=== PATIENT | female | born 1980 | race Caucasian/White ===

== ENCOUNTER 2023-01-09 08:38 | Emergency (ER) | payer OTHER, SELFPAY ==
[2023-01-09 08:42] VITALS: BP 98/69; PULSE 54; RESP 19; TEMP 36.6; O2SAT 98; BMI 51.2
--- NOTE | 2023-01-09 08:59 | ED.FEMALEGU ---
HPI - Female Genitourinary General Chief complaint: Urogenital-Female Stated complaint: UTI Time Seen by Provider: 01/09/23 08:51 Source: patient Mode of arrival: ambulatory Limitations: no limitations History of Present Illness HPI Narrative: 42 yo female with history of recurring UTIs (last was a months ago) who presents to the ER for a week and a half of bladder pressure, urgency, frequency, foul-smelling urine and left sided flank pain. She reports the left-sided flank pain is a dull ache, comes and goes. She states she has ongoing bladder pressure which is common UTI symptom for her. She denies any dysuria. She denies any hematuria. She states she has not had any abdominal pain, nausea, vomiting, diarrhea. She is not sexually active. She denies any vaginal discharge. MD elicited complaint: UTI Pertinent past history: recurrent UTIs Onset (ago): week(s) (1.5) Location of symptoms: suprapubic, urethra and flank (left) Severity: moderate Female Urogenital Radiation: Non-Radiating Severity scale (1-10): 5 Quality of pain: dull and aching Consistency: intermittent Vaginal discharge: none Vaginal bleeding: none Urinary symptoms: Urgency, Frequency and Foul Smelling Urine Exacerbating factors: none Relieving factors: none Associated symptoms: back pain Treatment prior to arrival: none Sexual activity: No Patient : No Related Data Previous Rx's Medication Instructions Recorded cefuroxime axetil 250 mg tablet 250 mg PO BID 7 days #14 tabs 01/09/23 Allergies Allergy/AdvReac Type Severity Reaction Status Date / Time erythromycin base AdvReac Stomach Verified 01/09/23 08:41 Upset Review of Systems Review of Systems: Yes all other systems are reviewed and are negative [facility] Social History Social History Alcohol intake: never Smoked in Last 30 Days: Yes Advance Directives: No Advance Directives Information Provided: Yes Physical Exam Vital Signs: Vital Signs: Last Vital Signs Temp 98 F 01/09/23 08:42 Pulse 54 01/09/23 08:42 Resp 19 01/09/23 08:42 BP 98/69 01/09/23 08:42 Pulse Ox 98 01/09/23 08:42 BMI result Body Mass Index 51.2 Appearance: Alert. Oriented X3. No acute distress. Head: normocephalic, atraumatic. Eyes: Pupils equal, round and reactive to light. ENT: Pharynx normal. No tonsillar swelling or exudate. Neck: Normal inspection. Neck supple. CVS: Normal heart rate and rhythm. Pulses normal. Respiratory: No respiratory distress. Breath sounds normal. Abdomen: Obese, soft and nontender. +BS x4. No CVA tenderness. Skin: Skin warm and dry. Normal skin color. Normal skin turgor. No rashes. Extremities: No lower extremity edema. No joint swelling. Neuro/psych: Oriented X 3. Grossly normal, nonfocal CN II-XII intact. Normal speech and cognition. Medical Decision Making Medical Decision Making [facility] Narrative: 42-year-old female presents to the ER for evaluation of urinary tract infection symptoms for the last week and half. She also reports low back pain and left flank pain. She denies hematuria, fever, chills, nausea, vomiting, abdominal pain. She has no CVA tenderness on examination. She is hemodynamically stable and afebrile on arrival to the ER. Her urinalysis is positive for infection, negative for . Doubt acute pyelonephritis. Will treat with Ceftin for 1 week. Stable for discharge home. Return precautions discussed. Differential Diagnosis Differential Diagnoses: The differential diagnosis associated with the presentation includes Acute lower UTI, pyelonephritis, kidney stone, Lab Data [facility] Lab Attestation statement: I reviewed the patient's lab results. Labs: Lab Results 01/09/23 Range/Units 08:57 Urine Color Yellow Urine Appearance Cloudy Urine pH 5.5 (5.0-9.0) Ur Specific [place] 1.010 (1.005-1.025) Urine Protein Negative (Neg-Trace) mg/dL Urine Glucose (UA) Negative (Negative) mg/dL Urine Ketones Negative (Negative) mg/dL Urine Blood Negative (Negative) Urine Nitrite Negative (Negative) Ur Leukocyte Esterase Large (3+) H (Negative) Urine RBC 0-2 (0-2) /HPF Urine WBC >50 H (0-5) /HPF Ur Squamous Epith Cells 11-20 (0-2) /HPF Urine Bacteria 3+ (None Seen) Hyaline Casts 0-2 (0-2) /LPF Prescription Management I considered prescription management with: Antibiotic Critical Care Time Critical Care Time Critical Care Time: No Discharge Plan Discharge Clinical Impression: Urinary tract infection Patient Disposition: Home, Self-Care Instructions: Urinary Tract Infection in Women (DC) Additional Instructions: Take the prescribed antibiotic as directed. Complete the entire course and do not miss any doses. Drink plenty of water, stay hydrated. Follow-up with your doctor. Prescriptions: New cefuroxime axetil 250 mg tablet 250 mg PO BID 7 Days Qty: 14 0RF
[2023-01-09 09:11] LABS: Appearance Urine Cloudy; Color Urine Yellow; Glucose Urine UA Negative (Negative); Leukocyte Esterase Urine Large (3+) (Negative); Nitrite Urine Negative (Negative); PH 5.5 (5.0-9.0); UMIC TRIGGER UACC YES; Urine Blood Negative (Negative); Urine Ketones Negative (Negative); Urine Protein Negative (Neg-Trace)
[2023-01-09 09:16] LABS: Bacteria Urine 3+ (None Seen); Hyaline Casts Urine 0-2 /LPF (0-2); RBC Urine 0-2 /HPF (0-2); UACC Culture Trigger YES; WBC Urine >50 /HPF (0-5)
[2023-01-09 09:24] LABS: UPreg QC Valid YES; Urine Pregnancy NEGATIVE (NEGATIVE)
[2023-01-09] MEDS: Phenazopyridine HCL 100 MG TABLET PO (09:37)
== END 2023-01-09 09:44 | disposition home or self-care (01) ==
PROVIDERS: Physician Assistant; Emergency Provider Emergency Medicine Emergency Medical Services
DX: N39.0 Urinary tract infection, site not specified (principal)
CPT/HCPCS: 81001; 81025; 87086; 99283; 99284

== ENCOUNTER 2023-01-31 16:04 | Emergency (ER) | payer OTHER, SELFPAY ==
--- NOTE | ~2023-01-31 | CT_ITS ---
EXAMINATION: CT ABDOMEN AND PELVIS WITHOUT CONTRAST CLINICAL INFORMATION: Left flank pain. COMPARISON: None available. TECHNIQUE: Multidetector volumetric imaging was performed from the superior aspect of the liver through the pubic symphysis. Sagittal and coronal reformatted images were obtained on the technologist's workstation. This CT examination was performed using dose optimization techniques as appropriate, variously including the following: *Automated exposure control *Adjustment of mA and/or kV according to patient size (this includes techniques or standardized protocols for targeted exams where dose is matched to indication/reason for exam; i.e. extremities or head) *Use of iterative reconstruction technique DLP: 1214 mGy-cm FINDINGS: The lack of intravenous contrast limits evaluation of the solid visceral organs including the liver, spleen, pancreas, and kidneys. LUNG BASES: The visualized lung bases are unremarkable. LIVER, GALLBLADDER, AND BILIARY TREE: The liver is normal in size, shape, and attenuation. No focal hepatic lesion or biliary ductal dilatation is present. Cholecystectomy. PANCREAS: Limited noncontrast examination. No peripancreatic fat stranding or free fluid. SPLEEN: Unremarkable. ADRENAL GLANDS: Unremarkable. KIDNEYS AND URETERS: Limited noncontrast examination. No hydronephrosis or nephrolithiasis. No perinephric fat stranding. BLADDER: Unremarkable. GASTROINTESTINAL TRACT: Stomach and small bowel are nondilated. Normal appendix. No pericolonic inflammatory changes. No evidence of bowel obstruction. ABDOMINAL WALL: Mild diffuse anasarca. LYMPH NODES: No lymphadenopathy. VASCULAR: Limited noncontrast examination. Abdominal aorta is normal in caliber. PELVIC VISCERA: IUD centered in the endometrial cavity. There is a 3.5 cm simple cyst in the right ovary, almost certainly benign and for which no imaging follow-up is recommended. OSSEOUS STRUCTURES: No acute or aggressive appearing osseous abnormalities. CT/CT abdomen pelvis wo IV con IMPRESSION: No evidence of hydronephrosis or nephrolithiasis. No acute abnormalities to explain the patient's symptoms.
--- NOTE | 2023-01-31 16:10 | ED.ABDPAIN ---
HPI - Abdominal Pain General Chief Complaint: Urogenital-Female Stated Complaint: ? kidney infection Time Seen by Provider: 01/31/23 17:05 Source: patient Mode of arrival: ambulatory History of Present Illness HPI narrative: 42-year-old female who presents with left flank discomfort that started yesterday associated nausea but no vomiting, fever or chills and also reports urinary symptoms. She states that she was recently treated for UTI and has a history of renal colic. Related Data Previous Rx's Medication Instructions Recorded cefuroxime axetil 250 mg tablet 250 mg PO BID 7 days #14 tabs 01/09/23 nitrofurantoin 100 mg PO Q12H 5 days #10 caps 01/31/23 monohydrate/macrocrystals 100 mg capsule (Macrobid) Allergies Allergy/AdvReac Type Severity Reaction Status Date / Time erythromycin base AdvReac Stomach Verified 01/09/23 08:41 Upset Review of Systems Review of Systems Pertinent positives and negatives as stated in HPI PMFSH Past Medical History Source: nursing notes reviewed Social History Social History Alcohol intake: former Smoked in Last 30 Days: Yes Use of substances other than those prescribed or required for medical reasons: No Advance Directives: No Advance Directives Information Provided: No Patient : No Physical Exam ED Vital Signs: Vital Signs - 24 hr 01/31/23 16:11 01/31/23 18:04 01/31/23 19:24 Temperature 98.6 F 97.9 F Pulse Rate 65 61 61 Respiratory Rate 18 18 18 Blood Pressure 108/85 123/58 L 126/54 L Pulse Oximetry 97 96 99 Oxygen Delivery Method Room Air Room Air Room Air BMI result Body Mass Index 52.1 VITAL SIGNS: Reviewed. GENERAL: Elevated BMI, Well developed, well nourished, in no acute distress. HEAD: Normocephalic/atraumatic EYES: PERRLA, EOMI EARS: Ext canals without abnormality NOSE: Nares patent bilateral OROPHARYNX: no oral lesions noted, posterior pharynx clear NECK: Supple, no adenopathy LUNGS: Normal breath sounds. No adventitious sounds or accessory muscle use. SpO2<96> CARDIOVASCULAR: Regular rate and rhythm without noted murmurs ABDOMEN: Soft, non-tender, non-distended with bowel sounds. MUSCULOSKELETAL: No tenderness, deformities, or effusions noted on gross inspection. EXTREMITIES: No cyanosis, clubbing or edema. SKIN: Inspection of the skin reveals no rashes NEUROLOGIC: Alert and oriented x 4. Strength and sensation to light touch were grossly intact x 4. Course Course Course Narrative: This is a rapid medical exam. Deferred additional HPi, ROS, PE to primary provider. 42yo female w/ history of GERD, RA, DDD, OUD on suboxone (plans on switching to suboclade), frequent utis here with left sided back pain with radiation to left lower abdomen, bladder pressure, subjective fever, urinary frequency x 1 week. Will check labs, UA VSS Medical Decision Making Medical Decision Making [facility] Narrative: 42-year-old female with history and clinical presentation concerning for possible renal colic or pyelonephritis, urine sample is challenging to assess given patient is currently on menstrual cycle. Will be given combination analgesics and proceed with CT scan. I reviewed all investigations my interpretation is patient has UTI, received initial antibiotics here in the emergency room and then discharged home in stable condition. Differential Diagnosis Please see the discussion above. Lab Data Please see the discussion above 01/31/23 16:30 01/31/23 16:30 Labs: Lab Results 01/31/23 01/31/23 01/31/23 Range/Units 16:30 16:30 16:35 WBC 7.2 (4.8-10.8) X10*3/uL RBC 4.12 L (4.20-5.50) X10*6/uL Hgb 12.4 (12.0-16.0) g/dl Hct 37.5 (37.0-47.0) % MCV 91.0 (80.0-98.0) fL MCH 30.1 (27.0-33.0) pg MCHC 33.1 (31.0-35.0) g/dl RDW 12.8 (11.0-16.0) % Plt Count 236 (160-400) X10*3/uL MPV 10.7 (9.4-12.3) fL Immature Gran % (Auto) 0.3 (0.0-0.4) % Neut % (Auto) 42.5 L (45-73) % Lymph % (Auto) 41.4 H (20-40) % Johnson % (Auto) 10.4 (2-11) % Eos % (Auto) 4.7 H (0-4) % Baso % (Auto) 0.7 (0-2) % Lymph # (Auto) 3.0 (1.2-4.9) X10*3/uL Johnson # (Auto) 0.8 (0.1-1.2) X10*3/uL Eos # (Auto) 0.3 (0.0-0.4) X10*3/uL Baso # (Auto) 0.1 (0.0-0.2) X10*3/uL Abs Immat Gran (auto) 0.02 (0.00-0.03) X10*3/uL Absolute Neuts (auto) 3.1 (2.0-8.3) x10*3/uL Absolute Nucleated RBC 0.000 (0.0-0.012) X10*3/uL Nucleated RBC % (auto) 0.0 (0.0-0.2) /100WBC Sodium 139 (135-145) mmol/L Potassium 4.1 (3.3-5.1) mmol/L Chloride 105 (96-108) mmol/L Carbon Dioxide 26 (22-29) mmol/L Anion Gap 12 (12-20) BUN 20 H (9-16) mg/dL Creatinine 0.94 (0.5-1.4) mg/dL Estim Creat Clear Calc 102.7 Estimated GFR > 60 Random Glucose 100 (60-115) mg/dL Calcium 9.1 (8.4-10.2) mg/dL Total Bilirubin 0.2 (0.0-1.0) mg/dL Direct Bilirubin < 0.2 (0.0-0.5) mg/dL AST 40 H (5-31) U/L ALT 51 H (0-31) U/L Alkaline Phosphatase 76 (39-117) U/L Total Protein 6.1 L (6.5-8.0) g/dL Albumin 3.3 L (3.5-5.0) g/dL Lipase 9 (8-78) U/L Urine Color Yellow Urine Appearance Clear Urine pH 5.5 (5.0-9.0) Ur Specific [place] 1.025 (1.005-1.025) Urine Protein 30 (1+) H (Neg-Trace) mg/dL Urine Glucose (UA) Negative (Negative) mg/dL Urine Ketones Trace (Negative) mg/dL Urine Blood Large (3+) H (Negative) Urine Nitrite Negative (Negative) Ur Leukocyte Esterase Small (1+) H (Negative) Urine RBC >20 H (0-2) /HPF Urine WBC 6-10 H (0-5) /HPF Ur Squamous Epith Cells 6-10 (0-2) /HPF Urine Bacteria 1+ (None Seen) Hyaline Casts 0-2 (0-2) /LPF Urine Test (NEGATIVE) 01/31/23 Range/Units 16:35 WBC (4.8-10.8) X10*3/uL RBC (4.20-5.50) X10*6/uL Hgb (12.0-16.0) g/dl Hct (37.0-47.0) % MCV (80.0-98.0) fL MCH (27.0-33.0) pg MCHC (31.0-35.0) g/dl RDW (11.0-16.0) % Plt Count (160-400) X10*3/uL MPV (9.4-12.3) fL Immature Gran % (Auto) (0.0-0.4) % Neut % (Auto) (45-73) % Lymph % (Auto) (20-40) % Johnson % (Auto) (2-11) % Eos % (Auto) (0-4) % Baso % (Auto) (0-2) % Lymph # (Auto) (1.2-4.9) X10*3/uL Johnson # (Auto) (0.1-1.2) X10*3/uL Eos # (Auto) (0.0-0.4) X10*3/uL Baso # (Auto) (0.0-0.2) X10*3/uL Abs Immat Gran (auto) (0.00-0.03) X10*3/uL Absolute Neuts (auto) (2.0-8.3) x10*3/uL Absolute Nucleated RBC (0.0-0.012) X10*3/uL Nucleated RBC % (auto) (0.0-0.2) /100WBC Sodium (135-145) mmol/L Potassium (3.3-5.1) mmol/L Chloride (96-108) mmol/L Carbon Dioxide (22-29) mmol/L Anion Gap (12-20) BUN (9-16) mg/dL Creatinine (0.5-1.4) mg/dL Estim Creat Clear Calc Estimated GFR Random Glucose (60-115) mg/dL Calcium (8.4-10.2) mg/dL Total Bilirubin (0.0-1.0) mg/dL Direct Bilirubin (0.0-0.5) mg/dL AST (5-31) U/L ALT (0-31) U/L Alkaline Phosphatase (39-117) U/L Total Protein (6.5-8.0) g/dL Albumin (3.5-5.0) g/dL Lipase (8-78) U/L Urine Color Urine Appearance Urine pH (5.0-9.0) Ur Specific [place] (1.005-1.025) Urine Protein (Neg-Trace) mg/dL Urine Glucose (UA) (Negative) mg/dL Urine Ketones (Negative) mg/dL Urine Blood (Negative) Urine Nitrite (Negative) Ur Leukocyte Esterase (Negative) Urine RBC (0-2) /HPF Urine WBC (0-5) /HPF Ur Squamous Epith Cells (0-2) /HPF Urine Bacteria (None Seen) Hyaline Casts (0-2) /LPF Urine Test NEGATIVE (NEGATIVE) Radiology Impression Radiologist Impression: My interpretation is in agreement with radiology's impression. Medications Administered Discontinued Medications Generic Name Dose Route Start Last Admin Trade Name Freq PRN Reason Stop Dose Admin Acetaminophen 975 mg 01/31/23 18:01 01/31/23 18:20 Acetaminophen 325 Mg Tablet PO 01/31/23 18:02 975 mg ONCE ONE Administration Ibuprofen 400 mg 01/31/23 18:01 01/31/23 18:20 Ibuprofen 400 Mg Tablet PO 01/31/23 18:02 400 mg ONCE ONE Administration Nitrofurantoin Macrocrystals 100 mg 01/31/23 20:07 01/31/23 20:25 Nitrofurantoin Monohyd/M-Cryst 100 Mg Capsule PO 01/31/23 20:08 100 mg ONCE ONE Administration Discharge Plan Discharge Clinical Impression: Urinary tract infection Patient Disposition: Home, Self-Care Instructions: Urinary Tract Infection in Women (DC) Additional Instructions: Complete the entire course of antibiotics as ordered. Prescriptions: New nitrofurantoin monohyd/m-cryst [Macrobid] 100 mg capsule 100 mg PO Q12H 5 Days Qty: 10 0RF Rx Instructions: must administer with a meal/food No Action cefuroxime axetil 250 mg tablet 250 mg PO BID 7 Days Qty: 14 0RF
[2023-01-31 16:11] VITALS: BP 108/85; PULSE 65; RESP 18; TEMP 37; O2SAT 97; BMI 52.1
[2023-01-31 16:35] LABS: MANUAL DIFF FLAG NO
[2023-01-31 16:38] LABS: Basophils Absolute Auto 0.1 X10*3/uL (0.0-0.2); Basophils Percent Auto 0.7 % (0-2); Eosinophils Absolute Auto 0.3 X10*3/uL (0.0-0.4); Eosinophils Percent Auto 4.7 % (0-4); Hematocrit 37.5 % (37.0-47.0); Hemoglobin 12.4 g/dl (12.0-16.0); Imm Gran Abs Auto 0.02 X10*3/uL (0.00-0.03); Imm Gran Pct Auto 0.3 % (0.0-0.4); Lymphocytes Percent Auto 41.4 % (20-40); Mean Corpuscular HGB Conc 33.1 g/dl (31.0-35.0); Mean Corpuscular Hemoglobin 30.1 pg (27.0-33.0); Mean Platelet Volume 10.7 fL (9.4-12.3); Monocytes Absolute Auto 0.8 X10*3/uL (0.1-1.2); Monocytes Percent Auto 10.4 % (2-11); Neutrophils Absolute Auto 3.1 x10*3/uL (2.0-8.3); Neutrophils Percent Auto 42.5 % (45-73); Platelet Count 236 X10*3/uL (160-400); Red Blood Count 4.12 X10*6/uL (4.20-5.50); Red Cell Distribution Width 12.8 % (11.0-16.0); White Blood Count 7.2 X10*3/uL (4.8-10.8)
[2023-01-31 16:44] LABS: UPreg QC Valid YES; Urine Pregnancy NEGATIVE (NEGATIVE)
[2023-01-31 16:47] LABS: Appearance Urine Clear; Glucose Urine UA Negative (Negative); Leukocyte Esterase Urine Small (1+) (Negative); Nitrite Urine Negative (Negative); PH 5.5 (5.0-9.0); Specific Gravity - Urine 1.025 (1.005-1.025); UMIC TRIGGER UACC YES; Urine Blood Large (3+) (Negative); Urine Ketones Trace mg/dL (Negative); Urine Protein 30 (1+) mg/dL (Neg-Trace)
[2023-01-31 16:48] LABS: Bacteria Urine 1+ (None Seen); Color Urine Yellow; Hyaline Casts Urine 0-2 /LPF (0-2); RBC Urine >20 /HPF (0-2); UACC Culture Trigger YES
[2023-01-31 16:53] LABS: Alanine Aminotransferase 51 U/L (0-31); Albumin Level 3.3 g/dL (3.5-5.0); Alkaline Phosphatase 76 U/L (39-117); Anion Gap 12 (12-20); Aspartate Amino Transferase 40 U/L (5-31); Bilirubin Direct < 0.2 mg/dL (0.0-0.5); Bilirubin Total 0.2 mg/dL (0.0-1.0); Blood Urea Nitrogen 20 mg/dL (9-16); Calcium 9.1 mg/dL (8.4-10.2); Carbon Dioxide 26 mmol/L (22-29); Chloride 105 mmol/L (96-108); Creatinine Clr Calc Pharmacy 102.7; Estimated Glomerular Filt Rate > 60; Glucose Random 100 mg/dL (60-115); Lipase 9 U/L (8-78); Potassium 4.1 mmol/L (3.3-5.1); Sodium 139 mmol/L (135-145); Total Protein 6.1 g/dL (6.5-8.0)
[2023-01-31 18:04] VITALS: BP 123/58; PULSE 61; RESP 18; O2SAT 96
[2023-01-31] MEDS: Ibuprofen 400 MG TABLET PO (18:20)
[2023-01-31] MEDS: Acetaminophen 325 MG TABLET 975 MG PO (18:20)
[2023-01-31 19:24] VITALS: BP 126/54; PULSE 61; RESP 18; TEMP 36.6; O2SAT 99
[2023-01-31] MEDS: Nitrofurantoin Monohyd/M-Cryst 100 MG CAPSULE PO (20:25)
== END 2023-01-31 20:39 | disposition home or self-care (01) ==
PROVIDERS: Nurse Practitioner Family; Emergency Provider Student in an Organized Health Care Education/Training Program
DX: N39.0 Urinary tract infection, site not specified (principal); R10.32 Left lower quadrant pain; Z79.899 Other long term (current) drug therapy
CPT/HCPCS: 36415; 74176; 80048; 80076; 81001; 81025; 83690; 85025; 87086; 99284

== ENCOUNTER 2024-06-16 15:13 | Emergency (ER) | payer OTHER, SELFPAY ==
--- NOTE | 2024-06-16 15:19 | ED_ITS ---
HPI - Skin/Abscess/Foreign Bdy General Chief complaint: Wound/Laceration Stated complaint: Abscess R armpit Time Seen by Provider: 06/16/24 17:30 Source: patient Mode of arrival: ambulatory Limitations: no limitations History of Present Illness ED Provider: Edison Vaca HPI narrative: 44-year-old female with histories of abscesses in the past presents to ED for right axilla abscess for 1 week that is tender and painful on palpation. Patient has had similar abscess in left axilla and gluteus silvia area. Patient has never follow-up with surgery to find now she was prone to having abscesses. Patient denies any fever, chest pain, shortness of breath. Patient denies any recent trauma. Related Data Previous Rx's ?Medication ?Instructions ?Recorded cefuroxime axetil 250 mg tablet 250 mg PO BID 7 days #14 tabs 01/09/23 nitrofurantoin 100 mg PO Q12H 5 days #10 caps 01/31/23 monohydrate/macrocrystals 100 mg capsule (Macrobid) cephalexin 500 mg capsule 500 mg PO QID 7 days #28 caps 06/16/24 doxycycline hyclate 100 mg tablet 100 mg PO BID 7 days #14 tabs 06/16/24 naproxen 500 mg tablet 500 mg PO BID PRN pain 7 days #14 06/16/24 tabs Allergies Allergy/AdvReac Type Severity Reaction Status Date / Time amoxapine Allergy Unknown Verified 06/16/24 15:23 carbamazepine [From Tegretol] Allergy Unknown Verified 06/16/24 15:23 tizanidine Allergy Unknown Verified 06/16/24 15:23 erythromycin base AdvReac Stomach Verified 01/09/23 08:41 Upset Review of Systems 2 Review of Systems: Yes all other systems are reviewed and are negative [facility] Social History Social History Alcohol intake: former Advance Directives: No Advance Directives Information Provided: No Do you have a plan to hurt others: No Plan Physical Exam 2 Vital Signs: Vital Signs: Last Vital Signs Temp 98.3 F 06/16/24 18:33 Pulse 88 06/16/24 18:33 Resp 19 06/16/24 18:33 BP 138/87 06/16/24 18:33 Pulse Ox 100 06/16/24 18:33 O2 Del Method Room Air 06/16/24 18:33 BMI result Body Mass Index 59.3 Const: General: cooperative, healthy appearing and comfortable O rientation/consciousness: patient oriented x3 HEENT: Head: Yes normal to inspection, Yes No palpable skull fracture present, Yes normocephalic and Yes atraumatic Eyes: General: appearance normal, both eyes and all related structures Neck: Neck: Yes normal visual inspection, Yes full ROM, Yes no lymphadenopathy, Yes no meningeal signs, Yes trachea midline, Yes supple, No anterior neck swelling and No tender Chest: Chest palpation & inspection: normal inspection of the chest and normal palpation of entire chest wall Chest/axillae images: 1. Positive for erythema and tenderness on palpation. On palpation hard nonfluctuant mass. Negative for crepitus, ecchymosis, deformity. Resp: Effort & Inspection: normal respiratory effort and able to speak in complete sentences Auscultation: clear to auscultation bilaterally Cardio: Jugular venous distension: no JVD Heart sounds: S1 normal heart sound present and S2 normal heart sound present GI: Inspection: Yes normal to inspection Palpation (GI): Soft to palpation, not firm, nontender, no guarding and not rigid : General: No CVA tenderness Back/Spine/Pelvis: Back: No CVA tenderness and No back tenderness Skin: Other: Right axilla abscess/hidradenitis suppurativa. Neuro: General: patient oriented x3, gait normal, tone normal, moves all extremities, Normal light touch and pain sensation, no meningeal signs, no focal motor deficits, CN's II-XI intact bilaterally and normal sensation to monofilament Extrem: General: Yes normal to inspection, Yes full ROM and Yes capillary refill normal Psych: Appearance: grossly normal, well kempt and not disheveled Course Course Course Narrative: This is a Rapid Medical Exam performed in triage by Tata Sargent PA-C. Full HPI, ROS and PE to be performed by primary ED provider. 44 yo F presenting to the ED c/o three abscess to R axilla x1 week w/subjective fevers. denies drainage. has been using warm compresses w/o relief. PE: 3 abscesses noted to right axilla. One with central fluctuance. Surrounding erythema. Two others indurated Plan: PO Abx & I&D to abscess Medical Decision Making Medical Decision Making [facility] Narrative: 44 yold female presents to the ED for right axilla redness/mass. Bedside ultrasound placed in area shows more cobble stone changes indicating cellulitis. There is or area of small collection, but it is not large black color on the ultrasound monitor to indicate abscesses that is soft and ready for incision & drainage. Patient informed presently no indication for incision or drainage. Area is not fluctuant. Ultrasound does not show collection ready to be drained and it is small. Shows more skin cobblestone cellulitic changes. Patient is educated on warm compression on area 4 times a day. Patient explained worrisome signs informed to return to the ED immediately. Not suspecting osteomyelitis, necrotizing fasciitis, compartment syndrome, DVT, lymphoma, or arterial occlusion. Differential Diagnosis Differential Diagnoses: The differential diagnosis associated with the presentation includes (Abscess, hidradenitis,) Admission/Observation Consideration of admission/observation: Escalation of care including admission/observation considered Independent Historian Clinical information obtained from an independent historian. History obtained from or confirmed by: Other (Patient) External Record Review External record reviewed: Other (prior visits) Prescription Management I considered prescription management with: Antibiotic Discharge Plan Discharge Clinical Impression: Abscess, Hidradenitis suppurativa of right axilla Patient Disposition: Home, Self-Care Instructions: Abscess (ED), Hidradenitis Suppurativa (ED) Additional Instructions: Presently no indication for incision and drainage. Recommend warm compress on area 4 times a day for 15 minutes. You will be discharged antibiotics. Return to the ED immediately for increased swelling, pus discharge, foul odor, severe pain, fever, chills, any other concerning symptoms. Prescriptions: New cephalexin 500 mg capsule 500 mg PO QID 7 Days Qty: 28 0RF doxycycline hyclate 100 mg tablet 100 mg PO BID 7 Days Qty: 14 0RF naproxen 500 mg tablet 500 mg PO BID PRN (Reason: pain) 7 Days Qty: 14 0RF No Action cefuroxime axetil 250 mg tablet 250 mg PO BID 7 Days Qty: 14 0RF nitrofurantoin monohyd/m-cryst [Macrobid] 100 mg capsule 100 mg PO Q12H 5 Days Qty: 10 0RF Rx Instructions: must administer with a meal/food Referrals: [facility] [place] General Surgeons [Provider Group] (Hidradenitis suppurative) Stand Alone Forms: Work/School Release Interventions: ED Discharge Assessment Last Done: 06/16/24 18:33 Discharge Date/Time: 06/16/24 18:34 Print Language: Danish
[2024-06-16 15:20] VITALS: PULSE 88; RESP 19; TEMP 36.8; O2SAT 100; BMI 59.3
[2024-06-16 18:33] VITALS: BP 138/87; PULSE 88; RESP 19; TEMP 36.8; O2SAT 100
== END 2024-06-16 18:34 | disposition home or self-care (01) ==
PROVIDERS: Emergency Provider Emergency Medicine Emergency Medical Services
DX: L02.411 Cutaneous abscess of right axilla (principal); L73.2 Hidradenitis suppurativa; R50.9 Fever, unspecified; M79.621 Pain in right upper arm
CPT/HCPCS: 99282; 99283

== ENCOUNTER 2024-07-16 00:33 | Inpatient (IN) | payer OTHER, SELFPAY ==
--- NOTE | ~2024-07-16 | XR_ITS ---
EXAMINATION: XR CHEST CLINICAL INFORMATION: sob/cough COMPARISON: None available. TECHNIQUE: 2 views of the chest were obtained. FINDINGS: No significant abnormality is noted involving the heart, lungs, mediastinum, bony thorax or soft tissues. XR/XR chest 2V IMPRESSION: Unremarkable examination. Electronically signed by: Gus Connelly MD 07/16/2024 01:46 AM [facility]
[2024-07-16 00:38] VITALS: BP 121/73; BP 142/70; PULSE 83; PULSE 88; RESP 18; TEMP 36.7; O2SAT 95; O2SAT 97; BMI 58.8
[2024-07-16 01:45] LABS: Hematocrit 40.6 % (37.0-47.0); Hemoglobin 13.8 g/dl (12.0-16.0); Mean Corpuscular Hemoglobin 28.5 pg (27.0-33.0); Mean Corpuscular Volume 83.7 fL (80.0-98.0); Mean Platelet Volume 10.4 fL (9.4-12.3); Platelet Count 308 X10*3/uL (160-400); Red Blood Count 4.85 X10*6/uL (4.20-5.50); White Blood Count 14.2 X10*3/uL (4.8-10.8)
[2024-07-16 01:47] LABS: Anion Gap 17 (12-20); Blood Urea Nitrogen 16 mg/dL (9-16); Calcium 9.5 mg/dL (8.4-10.2); Carbon Dioxide 25 mmol/L (22-29); Chloride 103 mmol/L (96-108); Creatinine Clr Calc Pharmacy 95.5; Estimated Glomerular Filt Rate 56; Glucose Random 105 mg/dL (60-115); Potassium 3.8 mmol/L (3.3-5.1); Sodium 141 mmol/L (135-145)
[2024-07-16 02:06] LABS: Influenza A PCR NEGATIVE (Negative); Influenza B PCR NEGATIVE (Negative); Resp Syncy Virus RNA Qual PCR NEGATIVE (Negative); SARS COV2 PCR INHOUSE NEGATIVE (Negative)
[2024-07-16 03:40] VITALS: BP 126/78; PULSE 83; RESP 18; TEMP 36.7; O2SAT 99
--- NOTE | 2024-07-16 05:13 | ED.URI ---
HPI - URI/Sore Throat General Chief Complaint: Upper Respiratory Symptoms Stated Complaint: SOB, Cough, runny nose, diarrhea x1 week A&Ox4 Time Seen by Provider: 07/16/24 04:58 Source: patient Mode of arrival: ambulatory Limitations: no limitations History of Present Illness ED Provider: aga LEGGETT Narrative: Patient's history of recurrent bronchitis with depression complaining of increased cough for last few days with off and on low-grade patient's smoker patient wants to talk to care team for med evaluation Related Data Previous Rx's ?Medication ?Instructions ?Recorded cefuroxime axetil 250 mg tablet 250 mg PO BID 7 days #14 tabs 01/09/23 nitrofurantoin 100 mg PO Q12H 5 days #10 caps 01/31/23 monohydrate/macrocrystals 100 mg capsule (Macrobid) cephalexin 500 mg capsule 500 mg PO QID 7 days #28 caps 06/16/24 doxycycline hyclate 100 mg tablet 100 mg PO BID 7 days #14 tabs 06/16/24 naproxen 500 mg tablet 500 mg PO BID PRN pain 7 days #14 06/16/24 tabs Allergies Allergy/AdvReac Type Severity Reaction Status Date / Time amoxapine Allergy Unknown Verified 07/16/24 00:43 carbamazepine [From Tegretol] Allergy Unknown Verified 07/16/24 00:43 tizanidine Allergy Unknown Verified 07/16/24 00:43 erythromycin base AdvReac Stomach Verified 07/16/24 00:43 Upset Review of Systems Review of Systems: Yes all other systems are reviewed and are negative PMFSH Social History Social History Alcohol intake: former Smoked in Last 30 Days: No Use of substances other than those prescribed or required for medical reasons: No Advance Directives: No Advance Directives Information Provided: Yes Patient : No Physical Exam Vital Signs: Vital Signs: Last Vital Signs Temp 98.0 F 07/16/24 03:40 Pulse 83 07/16/24 03:40 Resp 18 07/16/24 03:40 BP 126/78 07/16/24 03:40 Pulse Ox 99 07/16/24 03:40 O2 Del Method Room Air 07/16/24 03:40 BMI result Body Mass Index 58.8 Appearance: Alert. Oriented X3. No acute distress. ENT: Pharynx normal. Oral Mucosa moist Neck: Normal inspection. Neck supple. CVS: Normal heart rate and rhythm. Pulses normal. Respiratory: No respiratory distress. Equal air entry bilateral, prolonged expiration Skin: Skin warm and dry. Normal skin color. Normal skin turgor. Extremities: No lower extremity edema. psych : Patient is anxious feel depressed and suicidal with no plan Neuro: Oriented X 3. Medications Administered Discontinued Medications Generic Name Dose Route Start Last Admin Trade Name Freq PRN Reason Stop Dose Admin Albuterol Sulfate 2 puff 07/16/24 05:18 07/16/24 05:43 Albuterol Sulfate 90 Mcg 8 Gm Inhaler INHALE 07/16/24 05:19 2 puff ONCE ONE Administration Benzonatate 200 mg 07/16/24 05:18 07/16/24 05:43 Benzonatate 100 Mg Capsule PO 07/16/24 05:19 200 mg ONCE ONE Administration Cefuroxime Axetil 500 mg 07/16/24 05:18 07/16/24 05:43 Cefuroxime Axetil 500 Mg Tablet PO 07/16/24 05:19 500 mg ONCE ONE Administration Prednisone 40 mg 07/16/24 05:18 07/16/24 05:43 Prednisone 20 Mg Tablet PO 07/16/24 05:19 40 mg ONCE ONE Administration Medical Decision Making Lab Data [facility] Lab Attestation statement: I reviewed the patient's lab results. 07/16/24 01:17 07/16/24 01:17 Labs: Lab Results 07/16/24 07/16/24 Range/Units 01:17 06:17 WBC 14.2 H (4.8-10.8) X10*3/uL RBC 4.85 (4.20-5.50) X10*6/uL Hgb 13.8 (12.0-16.0) g/dl Hct 40.6 (37.0-47.0) % MCV 83.7 (80.0-98.0) fL MCH 28.5 (27.0-33.0) pg MCHC 34.0 (31.0-35.0) g/dl RDW 13.0 (11.0-16.0) % Plt Count 308 D (160-400) X10*3/uL MPV 10.4 (9.4-12.3) fL Absolute Nucleated RBC 0.000 (0.0-0.012) X10*3/uL Nucleated RBC % (auto) 0.0 (0.0-0.2) /100WBC Sodium 141 (135-145) mmol/L Potassium 3.8 (3.3-5.1) mmol/L Chloride 103 (96-108) mmol/L Carbon Dioxide 25 (22-29) mmol/L Anion Gap 17 (12-20) BUN 16 (9-16) mg/dL Creatinine 1.07 (0.5-1.4) mg/dL Estim Creat Clear Calc 95.5 Estimated GFR 56 Random Glucose 105 (60-115) mg/dL Calcium 9.5 (8.4-10.2) mg/dL Urine Test NEGATIVE (NEGATIVE) Urine Opiates Screen Not Detected (Not Detect) Ur Buprenorphine Scrn Positive H (Not Detect) ng/mL Ur Oxycodone Screen Not Detected (Not Detect) ng/mL Urine Methadone Screen Not Detected (Not Detect) ng/mL Urine Fentanyl Screen Not Detected (Not Detect) Ur Barbiturates Screen Not Detected (Not Detect) Ur Phencyclidine Scrn Not Detected (Not Detect) Ur Amphetamines Screen Not Detected (Not Detect) U Benzodiazepines Scrn Not Detected (Not Detect) Urine Cocaine Screen POSITIVE H (Not Detect) U Marijuana (THC) Screen POSITIVE H (Not Detect) Ethyl Alcohol < 10 mg/dL Influenza Type A (PCR) NEGATIVE (Negative) Influenza Type B (PCR) NEGATIVE (Negative) RSV RNA Qual (PCR) NEGATIVE (Negative) SARS-CoV-2 RNA (RT-PCR) NEGATIVE (Negative) Radiology Impression Discussion of test interpretation with radiology: I have reviewed the radiologist's reading. Radiologist Impression: NAD Discharge Plan Discharge Clinical Impression: Bronchitis, Depression Patient Disposition: Still a Patient Prescriptions: No Action cefuroxime axetil 250 mg tablet 250 mg PO BID 7 Days Qty: 14 0RF cephalexin 500 mg capsule 500 mg PO QID 7 Days Qty: 28 0RF doxycycline hyclate 100 mg tablet 100 mg PO BID 7 Days Qty: 14 0RF naproxen 500 mg tablet 500 mg PO BID PRN (Reason: pain) 7 Days Qty: 14 0RF nitrofurantoin monohyd/m-cryst [Macrobid] 100 mg capsule 100 mg PO Q12H 5 Days Qty: 10 0RF Rx Instructions: must administer with a meal/food Print Language: Singaporean
--- NOTE | 2024-07-16 05:18 | PC.NURSE ---
pt a&ox4, respirations even and unlabored. pt reports increased depression and anxiety at this time, she reports she states to triage i might be suicidal at this time of speaking to pt, pt states if she leaves she is going to have thoughts of suicide. pt reports she needs a medications adjustment for anxiety and depression. pt denies HI, provider and unit trust manager aware.
[2024-07-16 05:37] LABS: Ethanol < 10 mg/dL
[2024-07-16] MEDS: predniSONE 20 MG TABLET 40 MG PO ×2 (05:43→16:00)
[2024-07-16] MEDS: cefuroxime axetiL 500 MG TABLET PO ×3 (05:43→21:03)
[2024-07-16] MEDS: Albuterol Sulfate 90 MCG 8 GM INHALER 2 PUFF INHALE (05:43)
[2024-07-16] MEDS: Benzonatate 100 MG CAPSULE 200 MG PO (05:43)
--- NOTE | 2024-07-16 05:46 | PC.NURSE ---
pt medicated per mar, tolerated well with water.
--- NOTE | 2024-07-16 05:53 | PC.NURSE ---
security at bedside to change pt over, report given to POD rn
--- NOTE | 2024-07-16 05:58 | PC.NURSE ---
client transitioned over from main ed stated prior to dc that client would kill self if dc'ed also apparently is interested in med changes. asked approriately fro another blanket and ajdourned to room.
[2024-07-16 06:23] LABS: UPreg QC Valid YES; Urine Pregnancy NEGATIVE (NEGATIVE)
[2024-07-16 06:32] LABS: Amphetamine Screen Urine Not Detected (Not Detect); Barbiturates, Urine Not Detected (Not Detect); Benzodiazepines Screen Urine Not Detected (Not Detect); Buprenorphine Scr Positive (Not Detect); Cannabinoid Screen Urine POSITIVE (Not Detect); Cocaine Screen Urine POSITIVE (Not Detect); Fentanyl, urine Not Detected (Not Detect); Methadone Screen, Urine Not Detected (Not Detect); Opiate Screen Urine Not Detected (Not Detect); Oxycodone Screen Urine Not Detected (Not Detect); Phencyclidine Screen Urine Not Detected (Not Detect)
--- NOTE | 2024-07-16 07:29 | PC.NURSE ---
Assumed care of patient at 0645, patient appears to be in no apparent distress this am, sleeping, respirations even and unlabored. Continue plan of care for CARE team hilary
--- NOTE | 2024-07-16 09:50 | PHA.MEDREC ---
Pharmacy Consult ? Medication Reconciliation Pharmacy has completed the medication reconciliation. Spoke with patient in ed 4. Patient knew all medications. Patient is no longer on propranolol and only takes baclofen bid. ED provider aware med rec updated
[2024-07-16] MEDS: Ibuprofen 600 MG TABLET PO (11:45)
--- NOTE | 2024-07-16 12:50 | MHC.CARE ---
Pt has been found to meet criteria fir IPLOC. Pt had previously been a resident of [facility] in [place]. In order for Pt to return, Pt needs to contact their program on 07/19 and speak to Margo. Pt needs to step down into a [facility] bed in order to return to [facility].
--- NOTE | 2024-07-16 13:39 | PC.NURSE ---
pt ate lunch quickly then vomited on the floor. was apologetic. denies nausea after vomiting
--- NOTE | 2024-07-16 16:50 | PC.NURSE ---
Pt resting in bed, no apparent distress at this time, calm and cooperative, offering no complaints to this RN.
[2024-07-16 19:50] VITALS: PULSE 87; O2SAT 97
[2024-07-16] MEDS: QUEtiapine Fumarate 50 MG TABLET PO (20:17)
[2024-07-16] MEDS: Cariprazine HCl 3 MG CAPSULE PO (20:17)
[2024-07-16] MEDS: hydrOXYzine HCL 50 MG TABLET PO (20:17)
[2024-07-16 20:26] VITALS: BP 112/76; PULSE 68; RESP 20; TEMP 36.3; O2SAT 96
--- NOTE | 2024-07-16 21:20 | PC.NURSE ---
Pt has had uneventful day, most of which was spent sleeping or ambulating around pod, conversing with staff. Patient is calm and cooperative, took all night medications without issue. Pt is currently resting on bed in 4, aware of plan of care for inpatient bedsearch
--- NOTE | 2024-07-16 23:22 | PC.NURSE ---
Took report from off-going RN at 2300 hours. Pt is a 44 y/o female who presents for evaluation for SI without a plan and medication adjustment. History is significant for multiple attempts in the past. Pt is calm and cooperative, independent with ADLs, and denies any HI at this time. Inpatient bed search is ongoing. Will continue to monitor for any changes.
--- NOTE | 2024-07-17 | ECG_ITS ---
Test Reason : CHECK QT Blood Pressure : / mmHG Vent. Rate : 072 BPM Atrial Rate : 072 BPM P-R Int : 134 ms QRS Dur : 086 ms QT Int : 432 ms P-R-T Axes : 006 020 019 degrees QTc Int : 473 ms Normal sinus rhythm Low voltage QRS Borderline ECG No previous ECGs available Referred By: Nadira Barajas Electronically Signed By:LAYLA HENSON
--- NOTE | 2024-07-17 01:26 | PC.NURSE ---
Pt is sleeping in bed in right lateral recumbent position, appears comfortable. Easily arousable with verbal stimuli. Changes positions independently as desired. Will continue to monitor for any changes.
--- NOTE | 2024-07-17 03:07 | PC.NURSE ---
Pt is sleeping in bed in right lateral recumbent position, appears comfortable. Breathing observed, easily arousable with verbal stimuli. Changes positions independently as desired. Q15 safety checks continue. Will continue to monitor for any changes
--- NOTE | 2024-07-17 06:27 | PC.NURSE ---
Pt slept most of the night, got up once during the shift to use the bathroom. Ambulates well with a steady gait. Is calm and cooperative, appropriate with staff. Pt is easily arousable with verbal stimuli. Bed search is ongoing for inpatient level care. Will continue to monitor for any changes.
[2024-07-17 06:37] VITALS: BP 113/65; PULSE 64; RESP 16; TEMP 36.7; O2SAT 98
[2024-07-17] MEDS: cefuroxime axetiL 500 MG TABLET PO ×2 (08:39→20:30)
[2024-07-17] MEDS: predniSONE 20 MG TABLET 40 MG PO (08:39)
[2024-07-17 09:14] LABS: Appearance Urine Turbid; Color Urine Yellow; Glucose Urine UA Negative (Negative); Leukocyte Esterase Urine Negative (Negative); Nitrite Urine Negative (Negative); Specific Gravity - Urine >= 1.030 (1.005-1.025); Urine Blood Negative (Negative); Urine Ketones 15 mg/dL (Negative); Urine Protein Trace mg/dL (Neg-Trace)
--- NOTE | 2024-07-17 14:51 | PC.NURSE ---
pt was medicated for arthritis pain with Motrin 600mg po at 1440. Pharmacy aware that IP provider cancelled order while it was in process of being given to the patient
[2024-07-17 16:18] VITALS: BP 150/94; PULSE 66; RESP 16; TEMP 36.4; O2SAT 98; BMI 57.9
[2024-07-17] MEDS: Nicotine 21 MG PATCH.TD24 TRANSDERMA (16:44)
[2024-07-17] MEDS: Nicotine Polacrilex 2 MG GUM 4 MG BUCCAL ×2 (16:44→20:31)
--- NOTE | 2024-07-17 18:04 | PC.ADMIT ---
Darline was admitted to at 15:15 from the pod on a CV for suicidal thoughts. She has been residing at a [facility] at [facility] for the past 2 months. She became increasingly depressed there and after alerting staff to her suicidal thoughts and not receiving an adequate response she left [facility], used crack, and presented to the ED for difficulty breathing and coughing. She was diagnosed with bronchitis and antibiotics were started in the ED. She states that physically she is feeling better. Irma is cooperative with the admission process and her speech and eye contract are within normal limits. She appears at ease in the milieu and is spending time in the kitchen with peers. She hopes to go from the hospital to [facility] and then return to [facility]. In the alf she plans to return to [facility]. She has a history of rheumatoid arthritis and typically uses a biologic to help with symptoms, but has not had access since March or April. She denies intent to act on her SI here and agrees to come to staff if intent arrises. She denies HI/AVH. Skin check was unremarkable. Tox screen positive for bupenorphine, cocaine, and THC. She denies alcohol use. Flu vaccine refused. NRT given and cessation consult ordered. Patient is placed on 15 minute checks for safety.?
[2024-07-17] MEDS: Loperamide HCl 2 MG CAPSULE 4 MG PO (19:27)
[2024-07-17 19:56] VITALS: BP 142/86; PULSE 68; RESP 16; TEMP 36.4; O2SAT 99
[2024-07-17 20:00] VITALS: BP 140/88; PULSE 66; TEMP 36.6; O2SAT 99
[2024-07-17] MEDS: hydrOXYzine HCL 50 MG TABLET PO (20:30)
[2024-07-17] MEDS: Cariprazine HCl 3 MG CAPSULE PO (20:31)
[2024-07-17] MEDS: QUEtiapine Fumarate 50 MG TABLET PO (20:31)
[2024-07-17] MEDS: traZODone HCL 50 MG TABLET PO ×2 (20:31→21:32)
[2024-07-17] MEDS: Baclofen 10 MG TABLET PO (20:31)
[2024-07-18 08:02] VITALS: BP 122/65; PULSE 59; TEMP 36.4; O2SAT 97
[2024-07-18 08:48] LABS: Estimated Average Glucose 120 mg/dL; Hemoglobin A1c % 5.8 % (<6.0); Total Hemoglobin (HGBA1C) 3341.2952 umol/L
[2024-07-18 08:59] LABS: Cholesterol 133 mg/dL (<200); HDL Cholesterol 33 mg/dL (>40); LDL Cholesterol Calculated 77 mg/dL (<100); Magnesium 2.2 mg/dL (1.6-2.6); Triglycerides 117 mg/dL (<150)
[2024-07-18 09:16] LABS: Free T4 (Free Thyroxine) 1.16 ng/dL (0.71-1.85); Thyroid Stimulating Hormone 1.89 uIU/mL (0.32-4.0)
[2024-07-18 09:29] LABS: Folate 11.4 ng/mL (> or = 4.0); Vitamin B12 629 pg/mL (200-900)
[2024-07-18] MEDS: Omeprazole 20 MG CAPSULE.DR PO (10:17)
[2024-07-18] MEDS: predniSONE 20 MG TABLET 40 MG PO (10:17)
[2024-07-18 10:18] VITALS: BP 122/65
[2024-07-18] MEDS: Furosemide 20 MG TABLET PO (10:18)
[2024-07-18] MEDS: Baclofen 10 MG TABLET PO ×3 (10:23→20:25)
[2024-07-18] MEDS: cefuroxime axetiL 500 MG TABLET PO ×2 (10:24→20:25)
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
[2024-07-18 20:00] VITALS: BP 136/86; PULSE 78; RESP 18; TEMP 36.8; O2SAT 90
[2024-07-18] MEDS: Cariprazine HCl 3 MG CAPSULE PO (20:25)
[2024-07-18] MEDS: cloNIDine HCL 0.1 MG TABLET 0.05 MG PO (20:25)
[2024-07-18] MEDS: Docusate Sodium 100 MG CAPSULE PO (20:27)
[2024-07-18] MEDS: Sennosides 8.6 MG TABLET 17.2 MG PO (20:27)
[2024-07-18] MEDS: hydrOXYzine HCL 50 MG TABLET PO (20:27)
[2024-07-18] MEDS: QUEtiapine Fumarate 50 MG TABLET PO (20:27)
[2024-07-18] MEDS: traZODone HCL 50 MG TABLET PO (20:27)
[2024-07-18] MEDS: Nicotine Polacrilex 2 MG GUM 4 MG BUCCAL (20:31)
[2024-07-19 07:54] VITALS: BP 110/59; PULSE 58; TEMP 36.4; O2SAT 99
[2024-07-19] MEDS: predniSONE 20 MG TABLET 40 MG PO (08:21)
[2024-07-19] MEDS: Baclofen 10 MG TABLET PO ×3 (08:21→20:09)
[2024-07-19] MEDS: Furosemide 20 MG TABLET PO (08:21)
[2024-07-19] MEDS: cefuroxime axetiL 500 MG TABLET PO ×2 (08:21→20:08)
[2024-07-19] MEDS: Omeprazole 20 MG CAPSULE.DR PO (08:21)
--- NOTE | 2024-07-19 09:14 | P.PNPSI_ITS ---
Subjective Subjective Date of Service: 07/19/24 Reason For Visit: Depression,cannabis,cocaine,suboxone use D/O Interim History: Patient seen. She reports she is doing OK today. Slept a little better with the Clonidine. Settling into the unit. Eating is good. Denies SI. Denies AVH. Review of Systems Review of Systems Yes all other systems are reviewed and are negative Mental Status Exam Mental Status Exam Narrative: General appearance: casually appropriate dress. Overweight Good hygiene.? Eye contact: WNL. Musculoskeletal: Normal muscle strength/tone, Normal gait and station, No abnormal involuntary movements like tremors, EPS or dyskinesia. No psychomotor agitation or retardation. Normal posture.??? Manner/behavior: cooperative and not guarded Speech:? Fluent, with normal rate, tone and volume. Language: No receptive or expressive language impairment? Mood: OK. Affect: Constricted range, congruent to mood? Thought process/associations: Linear with no flight of ideas or loose associations.?? Thought content:?No delusions or paranoia.?? Hallucinations: No auditory, visual or other hallucinations ? Suicidality/self-destructive behavior: Passive no plan.? ? Homicidally/violence: none.? Reliability: good.? ? Judgment: preserved.? ? Insight: preserved Cognition: Alert and oriented to time, place and person. Attention, concentration and fund of knowledge are normal.? Impulse control and emotional regulation: preserved. Intelligence estimate: average.? Diagnostics Vital Signs (24Hr): Vital Signs - 24 hr 07/18/24 10:18 07/18/24 20:00 07/19/24 07:54 Temperature 98.2 F 97.5 F Pulse Rate 78 58 Respiratory Rate 18 Blood Pressure 122/65 136/86 110/59 L Pulse Oximetry 90 L 99 Oxygen Delivery Method Room Air Room Air BMI result Body Mass Index 57.9 Labs 07/16/24 01:17 07/16/24 01:17 Labs: Laboratory Results - last 48 hr 07/16/24 07/18/24 06:17 07:51 Estimat Average Glucose 120 Hemoglobin A1c % 5.8 Magnesium 2.2 Triglycerides 117 Cholesterol 133 LDL Cholesterol, Calc 77 HDL Cholesterol 33 L Vitamin B12 629 Folate 11.4 TSH 1.89 Free T4 1.16 Urine Color Yellow Urine Appearance Turbid Urine pH 6.0 Ur Specific Loring >= 1.030 H Urine Protein Trace Urine Glucose (UA) Negative Urine Ketones 15 Urine Blood Negative Urine Nitrite Negative Ur Leukocyte Esterase Negative Imaging Radiology Impressions: ITS Impressions Chest X-Ray 07/16/24 01:00 IMPRESSION: Unremarkable examination. Electronically signed by: Gus Connelly MD 07/16/2024 01:46 AM [facility] [place] Medications Medications Current Medications Acetaminophen (Acetaminophen 325 Mg Tablet) 650 mg PO Q6H PRN PRN Reason: Headache/Pain Mild Scale (1-3) Al Hydroxide/Mg Hydroxide (Magnesium Hydrox/Alum Hydrox 30 Ml Oral.Susp) 30 ml PO Q6H PRN PRN Reason: Heartburn/Nausea Baclofen (Baclofen 10 Mg Tablet) 10 mg PO TID [facility] Last Admin: 07/19/24 08:21 Dose: 10 mg Cariprazine (Cariprazine Hcl 3 Mg Capsule) 3 mg PO BEDTIME [facility] Last Admin: 07/18/24 20:25 Dose: 3 mg Cefuroxime Axetil (Cefuroxime Axetil 500 Mg Tablet) 500 mg PO BID [facility] Stop: 07/21/24 14:29 Last Admin: 07/19/24 08:21 Dose: 500 mg Clonidine HCl (Clonidine Hcl 0.1 Mg Tablet) 0.05 mg PO BEDTIME [facility]; Protocol Last Admin: 07/18/24 20:25 Dose: 0.05 mg Docusate Sodium (Docusate Sodium 100 Mg Capsule) 100 mg PO BID [facility] Last Admin: 07/19/24 08:23 Dose: Not Given Furosemide (Furosemide 20 Mg Tablet) 20 mg PO DAILY [facility]; Protocol Last Admin: 07/19/24 08:21 Dose: 20 mg Hydroxyzine HCl (Hydroxyzine Hcl 50 Mg Tablet) 50 mg PO BEDTIME [facility] Last Admin: 07/18/24 20:27 Dose: 50 mg Loperamide HCl (Loperamide Hcl 2 Mg Capsule) 4 mg PO Q6H PRN PRN Reason: Diarrhea Last Admin: 07/17/24 19:27 Dose: 2 mg Magnesium Hydroxide (Milk Of Magnesia 30 Ml Oral.Susp) 30 ml PO DAILY PRN PRN Reason: Constipation Nicotine (Nicotine 21 Mg Patch.Td24) 21 mg TRANSDERMA DAILY PRN PRN Reason: Nicotine Cravings Last Admin: 07/17/24 16:44 Dose: 21 mg Nicotine Polacrilex (Nicotine Polacrilex 2 Mg Gum) 4 mg BUCCAL Q2H PRN PRN Reason: Nicotine Cravings Last Admin: 07/18/24 20:31 Dose: 4 mg Omeprazole (Omeprazole 20 Mg Capsule.Dr) 20 mg PO DAILY@0630 [facility] Last Admin: 07/19/24 08:21 Dose: 20 mg Prednisone (Prednisone 20 Mg Tablet) 40 mg PO DAILY [facility] Stop: 07/20/24 14:29 Last Admin: 07/19/24 08:21 Dose: 40 mg Quetiapine Fumarate (Quetiapine Fumarate 50 Mg Tablet) 50 mg PO BEDTIME [facility] Last Admin: 07/18/24 20:27 Dose: 50 mg Senna (Sennosides 8.6 Mg Tablet) 17.2 mg PO BEDTIME [facility] Last Admin: 07/18/24 20:27 Dose: 17.2 mg Trazodone HCl (Trazodone Hcl 50 Mg Tablet) 50 mg PO BEDTIME MRX1 PRN PRN Reason: Insomnia Last Admin: 07/18/24 20:27 Dose: 50 mg Allergies Allergies Allergy/AdvReac Type Severity Reaction Status Date / Time amoxapine Allergy Unknown Verified 07/16/24 00:43 carbamazepine [From Tegretol] Allergy Unknown Verified 07/16/24 00:43 tizanidine Allergy Unknown Verified 07/16/24 00:43 erythromycin base AdvReac Stomach Verified 07/16/24 00:43 Upset Assessment & Plan Assessment & Plan (1) Recurrent depressive disorder, current episode moderate: Status: Acute Code(s): F33.1 - Major depressive disorder, recurrent, moderate (2) PTSD (post-traumatic stress disorder): Status: Acute Code(s): F43.10 - Post-traumatic stress disorder, unspecified (3) Cocaine use disorder: Status: Acute Code(s): F14.10 - Cocaine abuse, uncomplicated Plan 44 yo female with history of recurrent MDD, PTSD, cocaine use disorder presents with increasing depression with SI in the setting of increase psychosocial stress, loss of custody of son, holidays and being away from home and residing in a sober house. Plan: - Admit to inpatient psychiatry - CV - Collateral information from family and providers. - Milieu treatment and group therapy. - Medications: Add low dose Clonidine 0.05. Per patient request higher doses are too heavy and sedating. Increase Baclofen to 10 mg TID. (Used for cocaine cravings.) - Social work evaluation. - Disposition planning. 07/19: Increase Clonidine to 0.1 mg. Continue current management and treatment plan. Reason for continued inpatient stay Substantial Risk for: harm to self, inability to function and rapid decompensation Time Spent With Patient Time: Total time managing care of this patient today ____ minutes.
[2024-07-19] MEDS: Nicotine Polacrilex 2 MG GUM 4 MG BUCCAL ×2 (11:44→18:44)
[2024-07-19] MEDS: Nicotine 21 MG PATCH.TD24 TRANSDERMA (11:44)
[2024-07-19 20:00] VITALS: BP 134/82; PULSE 72; RESP 15; O2SAT 97
[2024-07-19] MEDS: cloNIDine HCL 0.1 MG TABLET 0.05 MG PO (20:07)
[2024-07-19] MEDS: Cariprazine HCl 3 MG CAPSULE PO (20:07)
[2024-07-19] MEDS: hydrOXYzine HCL 50 MG TABLET PO (20:08)
[2024-07-19] MEDS: Sennosides 8.6 MG TABLET 17.2 MG PO (20:08)
[2024-07-19] MEDS: QUEtiapine Fumarate 50 MG TABLET PO (20:09)
[2024-07-19] MEDS: Docusate Sodium 100 MG CAPSULE PO (20:09)
[2024-07-19] MEDS: traZODone HCL 50 MG TABLET PO (20:12)
[2024-07-20] MEDS: Omeprazole 20 MG CAPSULE.DR PO (06:56)
[2024-07-20 08:20] VITALS: BP 125/65; PULSE 57; TEMP 36.2; O2SAT 98
[2024-07-20] MEDS: Docusate Sodium 100 MG CAPSULE PO ×2 (08:52→20:07)
[2024-07-20] MEDS: cefuroxime axetiL 500 MG TABLET PO ×2 (08:52→20:08)
[2024-07-20] MEDS: Furosemide 20 MG TABLET PO (08:53)
[2024-07-20] MEDS: Baclofen 10 MG TABLET PO ×3 (08:53→20:08)
[2024-07-20] MEDS: predniSONE 20 MG TABLET 40 MG PO (08:53)
[2024-07-20] MEDS: Nicotine 21 MG PATCH.TD24 TRANSDERMA (08:55)
[2024-07-20] MEDS: Nicotine Polacrilex 2 MG GUM 4 MG BUCCAL ×2 (09:02→16:35)
--- NOTE | 2024-07-20 09:57 | P.PNPSI_ITS ---
Subjective Subjective Date of Service: 07/20/24 Reason For Visit: Depression,cannabis,cocaine,suboxone use D/O Interim History: discussed with team; reviewed chart Staff report patient depressed, keeping to herself. No behavioral incidents Diagnostics Vital Signs (24Hr): Vital Signs - 24 hr 07/19/24 20:00 07/20/24 08:20 Temperature 97.1 F Pulse Rate 72 57 Respiratory Rate 15 Blood Pressure 134/82 125/65 Pulse Oximetry 97 98 Oxygen Delivery Method Room Air BMI result Body Mass Index 57.9 Labs 07/16/24 01:17 07/16/24 01:17 Imaging Radiology Impressions: ITS Impressions Chest X-Ray 07/16/24 01:00 IMPRESSION: Unremarkable examination. Electronically signed by: Gus Connelly MD 07/16/2024 01:46 AM [facility] [place] Medications Medications Current Medications Acetaminophen (Acetaminophen 325 Mg Tablet) 650 mg PO Q6H PRN PRN Reason: Headache/Pain Mild Scale (1-3) Al Hydroxide/Mg Hydroxide (Magnesium Hydrox/Alum Hydrox 30 Ml Oral.Susp) 30 ml PO Q6H PRN PRN Reason: Heartburn/Nausea Baclofen (Baclofen 10 Mg Tablet) 10 mg PO TID [facility] Last Admin: 07/20/24 08:53 Dose: 10 mg Cariprazine (Cariprazine Hcl 3 Mg Capsule) 3 mg PO BEDTIME [facility] Last Admin: 07/19/24 20:07 Dose: 3 mg Cefuroxime Axetil (Cefuroxime Axetil 500 Mg Tablet) 500 mg PO BID [facility] Stop: 07/21/24 14:29 Last Admin: 07/20/24 08:52 Dose: 500 mg Clonidine HCl (Clonidine Hcl 0.1 Mg Tablet) 0.1 mg PO BEDTIME [facility]; Protocol Docusate Sodium (Docusate Sodium 100 Mg Capsule) 100 mg PO BID [facility] Last Admin: 07/20/24 08:52 Dose: 100 mg Furosemide (Furosemide 20 Mg Tablet) 20 mg PO DAILY [facility]; Protocol Last Admin: 07/20/24 08:53 Dose: 20 mg Hydroxyzine HCl (Hydroxyzine Hcl 50 Mg Tablet) 50 mg PO BEDTIME [facility] Last Admin: 07/19/24 20:08 Dose: 50 mg Loperamide HCl (Loperamide Hcl 2 Mg Capsule) 4 mg PO Q6H PRN PRN Reason: Diarrhea Last Admin: 07/17/24 19:27 Dose: 2 mg Magnesium Hydroxide (Milk Of Magnesia 30 Ml Oral.Susp) 30 ml PO DAILY PRN PRN Reason: Constipation Nicotine (Nicotine 21 Mg Patch.Td24) 21 mg TRANSDERMA DAILY PRN PRN Reason: Nicotine Cravings Last Admin: 07/20/24 08:55 Dose: 21 mg Nicotine Polacrilex (Nicotine Polacrilex 2 Mg Gum) 4 mg BUCCAL Q2H PRN PRN Reason: Nicotine Cravings Last Admin: 07/20/24 09:02 Dose: 4 mg Omeprazole (Omeprazole 20 Mg Capsule.Dr) 20 mg PO DAILY@0630 [facility] Last Admin: 07/20/24 06:56 Dose: 20 mg Prednisone (Prednisone 20 Mg Tablet) 40 mg PO DAILY [facility] Stop: 07/20/24 14:29 Last Admin: 07/20/24 08:53 Dose: 40 mg Quetiapine Fumarate (Quetiapine Fumarate 50 Mg Tablet) 50 mg PO BEDTIME [facility] Last Admin: 07/19/24 20:09 Dose: 50 mg Senna (Sennosides 8.6 Mg Tablet) 17.2 mg PO BEDTIME [facility] Last Admin: 07/19/24 20:08 Dose: 17.2 mg Trazodone HCl (Trazodone Hcl 50 Mg Tablet) 50 mg PO BEDTIME MRX1 PRN PRN Reason: Insomnia Last Admin: 07/19/24 20:12 Dose: 50 mg Allergies Allergies Allergy/AdvReac Type Severity Reaction Status Date / Time amoxapine Allergy Unknown Verified 07/16/24 00:43 carbamazepine [From Tegretol] Allergy Unknown Verified 07/16/24 00:43 tizanidine Allergy Unknown Verified 07/16/24 00:43 erythromycin base AdvReac Stomach Verified 07/16/24 00:43 Upset Assessment & Plan Assessment & Plan (1) Recurrent depressive disorder, current episode moderate: Status: Acute Code(s): F33.1 - Major depressive disorder, recurrent, moderate (2) PTSD (post-traumatic stress disorder): Status: Acute Code(s): F43.10 - Post-traumatic stress disorder, unspecified (3) Cocaine use disorder: Status: Acute Code(s): F14.10 - Cocaine abuse, uncomplicated Plan 44 yo female with history of recurrent MDD, PTSD, cocaine use disorder presents with increasing depression with SI in the setting of increase psychosocial stress, loss of custody of son, holidays and being away from home and residing in a sober house. Plan: - Admit to inpatient psychiatry - CV - Collateral information from family and providers. - Milieu treatment and group therapy. - Medications: Add low dose Clonidine 0.05. Per patient request higher doses are too heavy and sedating. Increase Baclofen to 10 mg TID. (Used for cocaine cravings.) - Social work evaluation. - Disposition planning. 07/19: Increase Clonidine to 0.1 mg. Continue current management and treatment plan. 07/20 Staff report patient depressed, keeping to herself. No behavioral incidents Time Spent With Patient Time: Total time managing care of this patient today ____ minutes.
[2024-07-20 20:00] VITALS: BP 117/62; PULSE 67; TEMP 36.9; O2SAT 98
[2024-07-20] MEDS: Sennosides 8.6 MG TABLET 17.2 MG PO (20:07)
[2024-07-20] MEDS: Acetaminophen 325 MG TABLET 650 MG PO (20:07)
[2024-07-20 20:08] VITALS: BP 117/62
[2024-07-20] MEDS: QUEtiapine Fumarate 50 MG TABLET PO (20:08)
[2024-07-20] MEDS: hydrOXYzine HCL 50 MG TABLET PO (20:08)
[2024-07-20] MEDS: traZODone HCL 50 MG TABLET PO (20:08)
[2024-07-20] MEDS: Cariprazine HCl 3 MG CAPSULE PO (20:08)
[2024-07-20] MEDS: cloNIDine HCL 0.1 MG TABLET PO (20:08)
[2024-07-21] MEDS: Omeprazole 20 MG CAPSULE.DR PO (06:43)
[2024-07-21 08:00] VITALS: BP 116/55; PULSE 54; RESP 18; TEMP 36.3; O2SAT 99
[2024-07-21] MEDS: Baclofen 10 MG TABLET PO ×3 (08:28→20:31)
[2024-07-21] MEDS: cefuroxime axetiL 500 MG TABLET PO (08:28)
[2024-07-21] MEDS: Furosemide 20 MG TABLET PO (08:29)
[2024-07-21] MEDS: Docusate Sodium 100 MG CAPSULE PO ×2 (08:30→20:31)
[2024-07-21] MEDS: Nicotine 21 MG PATCH.TD24 TRANSDERMA (08:30)
[2024-07-21] MEDS: Acetaminophen 325 MG TABLET 650 MG PO (08:50)
[2024-07-21] MEDS: Nicotine Polacrilex 2 MG GUM 4 MG BUCCAL ×2 (08:50→16:25)
[2024-07-21] MEDS: Ibuprofen 600 MG TABLET PO ×2 (14:10→20:32)
[2024-07-21 20:00] VITALS: BP 132/78; PULSE 67; TEMP 36.4; O2SAT 98
[2024-07-21] MEDS: Sennosides 8.6 MG TABLET 17.2 MG PO (20:32)
[2024-07-21] MEDS: traZODone HCL 50 MG TABLET PO ×2 (20:32→23:46)
[2024-07-21] MEDS: cloNIDine HCL 0.1 MG TABLET PO (20:32)
[2024-07-21] MEDS: QUEtiapine Fumarate 50 MG TABLET PO (20:32)
[2024-07-21] MEDS: hydrOXYzine HCL 50 MG TABLET PO (20:32)
[2024-07-21] MEDS: Cariprazine HCl 3 MG CAPSULE PO (20:35)
--- NOTE | 2024-07-21 22:53 | P.PNPSI_ITS ---
Subjective Subjective Date of Service: 07/21/24 Reason For Visit: Depression,cannabis,cocaine,suboxone use D/O Interim History: Met with patient and social work; discussed with team Patient reports ongoing depression; shared about events leading up to admission and how she was struggling with depression anxiety, attempted to relapse and asked to get help with crisis however found staff unhelpful. Patient also reports depression typically worsens in the winter time. At this point most of suicide ideation is gone. Reviewed medications and patient says increased Vraylar makes her too groggy the next day; Tegretol not tolerated; Abilify, lithium, Risperdal tried but not sure effect. She has not tried Wellbutrin and aligner typewriter reviewed risks/side effects and patient agrees to start. Has insomnia but says has been sleeping okay lately Mental Status Exam Mental Status Exam Narrative: Pt is alert and oriented; behavior is cooperative, friendly and calm; patient is not in distress; dressed in hospital attire, malodorous; mood is described as depressed and affect congruent; eye contact appropriate; Speech is normal rate, volume and prosody and not pressured; psychomotor retardation present; thought process is organized and goal directed; Thought content is on tx; otherwise pertinent to relevant topics and without any delusional content, paranoid ideations or grandiosity; SI waning; no HI. There is no evidence of perceptual disturbance. Patients insight and judgment impaired Diagnostics Vital Signs (24Hr): Vital Signs - 24 hr 07/21/24 08:00 07/21/24 20:00 Temperature 97.4 F 97.6 F Pulse Rate 54 67 Respiratory Rate 18 Blood Pressure 116/55 L 132/78 Pulse Oximetry 99 98 Oxygen Delivery Method Room Air Room Air BMI result Body Mass Index 57.9 Labs 07/16/24 01:17 07/16/24 01:17 Imaging Radiology Impressions: ITS Impressions Chest X-Ray 07/16/24 01:00 IMPRESSION: Unremarkable examination. Electronically signed by: Gus Connelly MD 07/16/2024 01:46 AM [facility] Medications Medications Current Medications Acetaminophen (Acetaminophen 325 Mg Tablet) 650 mg PO Q6H PRN PRN Reason: Headache/Pain Mild Scale (1-3) Last Admin: 07/21/24 08:50 Dose: 650 mg Al Hydroxide/Mg Hydroxide (Magnesium Hydrox/Alum Hydrox 30 Ml Oral.Susp) 30 ml PO Q6H PRN PRN Reason: Heartburn/Nausea Baclofen (Baclofen 10 Mg Tablet) 10 mg PO TID [facility] Last Admin: 07/21/24 20:31 Dose: 10 mg Bupropion HCl (Bupropion Hcl Xl 150 Mg Tab.Er.24h) 150 mg PO DAILY [facility] Cariprazine (Cariprazine Hcl 3 Mg Capsule) 3 mg PO BEDTIME [facility] Last Admin: 07/21/24 20:35 Dose: 3 mg Clonidine HCl (Clonidine Hcl 0.1 Mg Tablet) 0.1 mg PO BEDTIME [facility]; Protocol Last Admin: 07/21/24 20:32 Dose: 0.1 mg Docusate Sodium (Docusate Sodium 100 Mg Capsule) 100 mg PO BID [facility] Last Admin: 07/21/24 20:31 Dose: 100 mg Furosemide (Furosemide 20 Mg Tablet) 20 mg PO DAILY [facility]; Protocol Last Admin: 07/21/24 08:29 Dose: 20 mg Hydroxyzine HCl (Hydroxyzine Hcl 50 Mg Tablet) 50 mg PO BEDTIME [facility] Last Admin: 07/21/24 20:32 Dose: 50 mg Ibuprofen (Ibuprofen 600 Mg Tablet) 600 mg PO Q8H PRN PRN Reason: Pain, Mild (Pain Scale 1-3) Last Admin: 07/21/24 20:32 Dose: 600 mg Loperamide HCl (Loperamide Hcl 2 Mg Capsule) 4 mg PO Q6H PRN PRN Reason: Diarrhea Last Admin: 07/17/24 19:27 Dose: 2 mg Magnesium Hydroxide (Milk Of Magnesia 30 Ml Oral.Susp) 30 ml PO DAILY PRN PRN Reason: Constipation Nicotine (Nicotine 21 Mg Patch.Td24) 21 mg TRANSDERMA DAILY PRN PRN Reason: Nicotine Cravings Last Admin: 07/21/24 08:30 Dose: 21 mg Nicotine Polacrilex (Nicotine Polacrilex 2 Mg Gum) 4 mg BUCCAL Q2H PRN PRN Reason: Nicotine Cravings Last Admin: 07/21/24 16:25 Dose: 4 mg Omeprazole (Omeprazole 20 Mg Capsule.Dr) 20 mg PO DAILY@0630 [facility] Last Admin: 07/21/24 06:43 Dose: 20 mg Quetiapine Fumarate (Quetiapine Fumarate 50 Mg Tablet) 50 mg PO BEDTIME [facility] Last Admin: 07/21/24 20:32 Dose: 50 mg Senna (Sennosides 8.6 Mg Tablet) 17.2 mg PO BEDTIME [facility] Last Admin: 07/21/24 20:32 Dose: 17.2 mg Trazodone HCl (Trazodone Hcl 50 Mg Tablet) 50 mg PO BEDTIME MRX1 PRN PRN Reason: Insomnia Last Admin: 07/21/24 20:32 Dose: 50 mg Allergies Allergies Allergy/AdvReac Type Severity Reaction Status Date / Time amoxapine Allergy Unknown Verified 07/16/24 00:43 carbamazepine [From Tegretol] Allergy Unknown Verified 07/16/24 00:43 tizanidine Allergy Unknown Verified 07/16/24 00:43 erythromycin base AdvReac Stomach Verified 07/16/24 00:43 Upset Assessment & Plan Assessment & Plan (1) Recurrent depressive disorder, current episode moderate: Status: Acute Code(s): F33.1 - Major depressive disorder, recurrent, moderate (2) PTSD (post-traumatic stress disorder): Status: Acute Code(s): F43.10 - Post-traumatic stress disorder, unspecified (3) Cocaine use disorder: Status: Acute Code(s): F14.10 - Cocaine abuse, uncomplicated Plan 44 yo female with history of recurrent MDD, PTSD, cocaine use disorder presents with increasing depression with SI in the setting of increase psychosocial stress, loss of custody of son, holidays and being away from home and residing in a sober house. Hospital course: 07/19: Increase Clonidine to 0.1 mg. Continue current management and treatment plan. 07/21 Patient reports ongoing depression; shared about events leading up to admission and how she was struggling with depression anxiety, attempted to relapse and asked to get help with crisis however found staff unhelpful. Patient also reports depression typically worsens in the winter time. At this point most of suicide ideation is gone. Reviewed medications and patient says increased Vraylar makes her too groggy the next day; Tegretol not tolerated; Abilify, lithium, Risperdal tried but not sure effect. She has not tried Wellbutrin and aligner typewriter reviewed risks/side effects and patient agrees to start. Has insomnia but says has been sleeping okay lately Plan: - CV START Wellbutrin ER 150mg Clonidine 0.1. Increased Baclofen to 10 mg TID. (Used for cocaine cravings.) - Collateral information from family and providers. - Milieu treatment and group therapy. - Social work evaluation. - Disposition planning. Patient educated on: diagnosis, medication risk/benefits, substance abuse and therapeutic strategies Informed Consent: understands Reason for continued inpatient stay Substantial Risk for: rapid decompensation Time Spent With Patient Time: Total time managing care of this patient today ____ minutes.
[2024-07-22 07:56] VITALS: BP 115/61; PULSE 54; RESP 16; TEMP 36.6; O2SAT 98
[2024-07-22] MEDS: buPROPion HCl XL 150 MG TAB.ER.24H PO (08:27)
[2024-07-22] MEDS: Baclofen 10 MG TABLET PO ×3 (08:27→21:01)
[2024-07-22] MEDS: Omeprazole 20 MG CAPSULE.DR PO (08:27)
[2024-07-22] MEDS: Docusate Sodium 100 MG CAPSULE PO ×2 (08:27→21:01)
[2024-07-22] MEDS: Furosemide 20 MG TABLET PO (08:27)
--- NOTE | 2024-07-22 19:42 | P.PNPSI_ITS ---
Subjective Subjective Date of Service: 07/22/24 Reason For Visit: Depression,cannabis,cocaine,suboxone use D/O Interim History: Met with patient; discussed with team Patient reports that slept well enough last night; tolerating medication; still depressed and agrees to increase tomorrow if remains tolerable. Mental Status Exam Mental Status Exam Narrative: Pt is alert and oriented; behavior is cooperative, isolative but friendly on approach and calm; patient is not in distress; dressed in hospital attire, malodorous; mood is described as little better and affect congruent; eye contact appropriate; Speech is normal rate, volume and prosody and not pressured; psychomotor retardation present; thought process is organized and goal directed; Thought content is on tx; otherwise pertinent to relevant topics and without any delusional content, paranoid ideations or grandiosity; No SI/HI. There is no evidence of perceptual disturbance. Patients insight and judgment fair. Diagnostics Vital Signs (24Hr): Vital Signs - 24 hr 07/21/24 20:00 07/22/24 07:56 Temperature 97.6 F 97.8 F Pulse Rate 67 54 Respiratory Rate 16 Blood Pressure 132/78 115/61 Pulse Oximetry 98 98 Oxygen Delivery Method Room Air Room Air BMI result Body Mass Index 57.9 Labs 07/16/24 01:17 07/16/24 01:17 Imaging Radiology Impressions: ITS Impressions Chest X-Ray 07/16/24 01:00 IMPRESSION: Unremarkable examination. Electronically signed by: Gus Connelly MD 07/16/2024 01:46 AM [facility] [place] [place] Medications Medications Current Medications Acetaminophen (Acetaminophen 325 Mg Tablet) 650 mg PO Q6H PRN PRN Reason: Headache/Pain Mild Scale (1-3) Last Admin: 07/21/24 08:50 Dose: 650 mg Al Hydroxide/Mg Hydroxide (Magnesium Hydrox/Alum Hydrox 30 Ml Oral.Susp) 30 ml PO Q6H PRN PRN Reason: Heartburn/Nausea Baclofen (Baclofen 10 Mg Tablet) 10 mg PO TID [facility] Last Admin: 07/22/24 14:41 Dose: 10 mg Bupropion HCl (Bupropion Hcl Xl 150 Mg Tab.Er.24h) 150 mg PO DAILY [facility] Last Admin: 07/22/24 08:27 Dose: 150 mg Cariprazine (Cariprazine Hcl 3 Mg Capsule) 3 mg PO BEDTIME [facility] Last Admin: 07/21/24 20:35 Dose: 3 mg Clonidine HCl (Clonidine Hcl 0.1 Mg Tablet) 0.1 mg PO BEDTIME [facility]; Protocol Last Admin: 07/21/24 20:32 Dose: 0.1 mg Docusate Sodium (Docusate Sodium 100 Mg Capsule) 100 mg PO BID [facility] Last Admin: 07/22/24 08:27 Dose: 100 mg Furosemide (Furosemide 20 Mg Tablet) 20 mg PO DAILY [facility]; Protocol Last Admin: 07/22/24 08:27 Dose: 20 mg Hydroxyzine HCl (Hydroxyzine Hcl 50 Mg Tablet) 50 mg PO BEDTIME [facility] Last Admin: 07/21/24 20:32 Dose: 50 mg Ibuprofen (Ibuprofen 600 Mg Tablet) 600 mg PO Q8H PRN PRN Reason: Pain, Mild (Pain Scale 1-3) Last Admin: 07/21/24 20:32 Dose: 600 mg Loperamide HCl (Loperamide Hcl 2 Mg Capsule) 4 mg PO Q6H PRN PRN Reason: Diarrhea Last Admin: 07/17/24 19:27 Dose: 2 mg Magnesium Hydroxide (Milk Of Magnesia 30 Ml Oral.Susp) 30 ml PO DAILY PRN PRN Reason: Constipation Nicotine (Nicotine 21 Mg Patch.Td24) 21 mg TRANSDERMA DAILY PRN PRN Reason: Nicotine Cravings Last Admin: 07/21/24 08:30 Dose: 21 mg Nicotine Polacrilex (Nicotine Polacrilex 2 Mg Gum) 4 mg BUCCAL Q2H PRN PRN Reason: Nicotine Cravings Last Admin: 07/21/24 16:25 Dose: 4 mg Nystatin (Nystatin Powder 15 Gm Bottle) 1 appl TOPICAL BID [facility]; Protocol Omeprazole (Omeprazole 20 Mg Capsule.Dr) 20 mg PO DAILY@0630 [facility] Last Admin: 07/22/24 08:27 Dose: 20 mg Quetiapine Fumarate (Quetiapine Fumarate 50 Mg Tablet) 50 mg PO BEDTIME [facility] Last Admin: 07/21/24 20:32 Dose: 50 mg Senna (Sennosides 8.6 Mg Tablet) 17.2 mg PO BEDTIME [facility] Last Admin: 07/21/24 20:32 Dose: 17.2 mg Trazodone HCl (Trazodone Hcl 50 Mg Tablet) 50 mg PO BEDTIME MRX1 PRN PRN Reason: Insomnia Last Admin: 07/21/24 23:46 Dose: 50 mg Allergies Allergies Allergy/AdvReac Type Severity Reaction Status Date / Time amoxicillin Allergy Unknown Unknown Verified 07/22/24 13:52 carbamazepine [From Tegretol] Allergy Unknown Verified 07/16/24 00:43 tizanidine Allergy Unknown Verified 07/16/24 00:43 erythromycin base AdvReac Stomach Verified 07/16/24 00:43 Upset Assessment & Plan Assessment & Plan (1) Recurrent depressive disorder, current episode moderate: Status: Acute Code(s): F33.1 - Major depressive disorder, recurrent, moderate (2) PTSD (post-traumatic stress disorder): Status: Acute Code(s): F43.10 - Post-traumatic stress disorder, unspecified (3) Cocaine use disorder: Status: Acute Code(s): F14.10 - Cocaine abuse, uncomplicated Plan 44 yo female with history of recurrent MDD, PTSD, cocaine use disorder presents with increasing depression with SI in the setting of increase psychosocial stress, loss of custody of son, holidays and being away from home and residing in a sober house. Hospital course: 07/19: Increase Clonidine to 0.1 mg. Continue current management and treatment plan. 07/21 Patient reports ongoing depression; shared about events leading up to admission and how she was struggling with depression anxiety, attempted to relapse and asked to get help with crisis however found staff unhelpful. Patient also reports depression typically worsens in the winter time. At this point most of suicide ideation is gone. Reviewed medications and patient says increased Vraylar makes her too groggy the next day; Tegretol not tolerated; Abilify, lithium, Risperdal tried but not sure effect. She has not tried Wellbutrin and service writer advisor reviewed risks/side effects and patient agrees to start. Has insomnia but says has been sleeping okay lately 07/22 still depressed; tolerating Wellbutrin; will likely increase -started nystatin for fungal infection Plan: - CV Continue Wellbutrin ER 150mg Clonidine 0.1. Increased Baclofen to 10 mg TID. (Used for cocaine cravings.) - Collateral information from family and providers. - Milieu treatment and group therapy. - Social work evaluation. - Disposition planning. Patient educated on: diagnosis and medication risk/benefits Informed Consent: understands Reason for continued inpatient stay Substantial Risk for: stable for discharge and rapid decompensation Time Spent With Patient Time: Total time managing care of this patient today ____ minutes.
[2024-07-22 19:53] VITALS: BP 128/72; PULSE 66; TEMP 36.5; O2SAT 98
[2024-07-22] MEDS: hydrOXYzine HCL 50 MG TABLET PO (21:01)
[2024-07-22] MEDS: Sennosides 8.6 MG TABLET 17.2 MG PO (21:01)
[2024-07-22] MEDS: Cariprazine HCl 3 MG CAPSULE PO (21:01)
[2024-07-22] MEDS: QUEtiapine Fumarate 50 MG TABLET PO (21:01)
[2024-07-22] MEDS: cloNIDine HCL 0.1 MG TABLET PO (21:01)
[2024-07-22] MEDS: traZODone HCL 50 MG TABLET PO (22:39)
[2024-07-23 08:00] VITALS: BP 113/55; PULSE 54; RESP 18; TEMP 35.9; O2SAT 98
[2024-07-23] MEDS: Baclofen 10 MG TABLET PO ×3 (08:29→20:32)
[2024-07-23] MEDS: buPROPion HCl XL 150 MG TAB.ER.24H PO ×2 (08:29→12:21)
[2024-07-23] MEDS: Furosemide 20 MG TABLET PO (08:30)
[2024-07-23] MEDS: Docusate Sodium 100 MG CAPSULE PO ×2 (08:30→20:33)
[2024-07-23] MEDS: Omeprazole 20 MG CAPSULE.DR PO (08:30)
[2024-07-23] MEDS: Ibuprofen 600 MG TABLET PO (08:31)
--- NOTE | 2024-07-23 09:53 | P.PNPSI_ITS ---
Subjective Subjective Date of Service: 07/23/24 Reason For Visit: Depression,cannabis,cocaine,suboxone use D/O Interim History: Met with patient; discussed with team Patient reports mood is improving and agrees to increasing Wellbutrin. Remains sleeping well enough. Some concern for BV and panel ordered. Nursing mentioned yeast infection on body habitus and nystatin started Mental Status Exam Mental Status Exam Narrative: Pt is alert and oriented; behavior is cooperative, friendly on approach, more social and calm; patient is not in distress; dressed in hospital attire, malodorous; mood is described as better and affect congruent; eye contact appropriate; Speech is normal rate, volume and prosody and not pressured; still some psychomotor retardation present but less; thought process is organized and goal directed; Thought content is on tx; otherwise pertinent to relevant topics and without any delusional content, paranoid ideations or grandiosity; No SI/HI. There is no evidence of perceptual disturbance. Patients insight and judgment fair. Diagnostics Vital Signs (24Hr): Vital Signs - 24 hr 07/22/24 19:53 07/23/24 08:00 Temperature 97.7 F 96.6 F L Pulse Rate 66 54 Respiratory Rate 18 Blood Pressure 128/72 113/55 L Pulse Oximetry 98 98 Oxygen Delivery Method Room Air Room Air BMI result Body Mass Index 57.9 Labs 07/16/24 01:17 07/16/24 01:17 Imaging Radiology Impressions: ITS Impressions Chest X-Ray 07/16/24 01:00 IMPRESSION: Unremarkable examination. Electronically signed by: Gus Connelly MD 07/16/2024 01:46 AM [facility] [place] Medications Current Medications Acetaminophen (Acetaminophen 325 Mg Tablet) 650 mg PO Q6H PRN PRN Reason: Headache/Pain Mild Scale (1-3) Last Admin: 07/21/24 08:50 Dose: 650 mg Al Hydroxide/Mg Hydroxide (Magnesium Hydrox/Alum Hydrox 30 Ml Oral.Susp) 30 ml PO Q6H PRN PRN Reason: Heartburn/Nausea Baclofen (Baclofen 10 Mg Tablet) 10 mg PO TID [facility] Last Admin: 07/23/24 08:29 Dose: 10 mg Bupropion HCl (Bupropion Hcl Xl 150 Mg Tab.Er.24h) 150 mg PO DAILY [facility] Last Admin: 07/23/24 08:29 Dose: 150 mg Cariprazine (Cariprazine Hcl 3 Mg Capsule) 3 mg PO BEDTIME [facility] Last Admin: 07/22/24 21:01 Dose: 3 mg Clonidine HCl (Clonidine Hcl 0.1 Mg Tablet) 0.1 mg PO BEDTIME [facility]; Protocol Last Admin: 07/22/24 21:01 Dose: 0.1 mg Docusate Sodium (Docusate Sodium 100 Mg Capsule) 100 mg PO BID [facility] Last Admin: 07/23/24 08:30 Dose: 100 mg Furosemide (Furosemide 20 Mg Tablet) 20 mg PO DAILY [facility]; Protocol Last Admin: 07/23/24 08:30 Dose: 20 mg Hydroxyzine HCl (Hydroxyzine Hcl 50 Mg Tablet) 50 mg PO BEDTIME [facility] Last Admin: 07/22/24 21:01 Dose: 50 mg Ibuprofen (Ibuprofen 600 Mg Tablet) 600 mg PO Q8H PRN PRN Reason: Pain, Mild (Pain Scale 1-3) Last Admin: 07/23/24 08:31 Dose: 600 mg Loperamide HCl (Loperamide Hcl 2 Mg Capsule) 4 mg PO Q6H PRN PRN Reason: Diarrhea Last Admin: 07/17/24 19:27 Dose: 2 mg Magnesium Hydroxide (Milk Of Magnesia 30 Ml Oral.Susp) 30 ml PO DAILY PRN PRN Reason: Constipation Nicotine (Nicotine 21 Mg Patch.Td24) 21 mg TRANSDERMA DAILY PRN PRN Reason: Nicotine Cravings Last Admin: 07/21/24 08:30 Dose: 21 mg Nicotine Polacrilex (Nicotine Polacrilex 2 Mg Gum) 4 mg BUCCAL Q2H PRN PRN Reason: Nicotine Cravings Last Admin: 07/21/24 16:25 Dose: 4 mg Nystatin (Nystatin Powder 15 Gm Bottle) 1 appl TOPICAL BID [facility]; Protocol Last Admin: 07/22/24 21:03 Dose: Not Given Omeprazole (Omeprazole 20 Mg Capsule.Dr) 20 mg PO DAILY@0630 [facility] Last Admin: 07/23/24 08:30 Dose: 20 mg Quetiapine Fumarate (Quetiapine Fumarate 50 Mg Tablet) 50 mg PO BEDTIME [facility] Last Admin: 07/22/24 21:01 Dose: 50 mg Senna (Sennosides 8.6 Mg Tablet) 17.2 mg PO BEDTIME [facility] Last Admin: 07/22/24 21:01 Dose: 17.2 mg Trazodone HCl (Trazodone Hcl 50 Mg Tablet) 50 mg PO BEDTIME MRX1 PRN PRN Reason: Insomnia Last Admin: 07/22/24 22:39 Dose: 50 mg Allergies Allergies Allergy/AdvReac Type Severity Reaction Status Date / Time amoxicillin Allergy Unknown Unknown Verified 07/22/24 13:52 carbamazepine [From Tegretol] Allergy Unknown Verified 07/16/24 00:43 tizanidine Allergy Unknown Verified 07/16/24 00:43 erythromycin base AdvReac Stomach Verified 07/16/24 00:43 Upset Assessment & Plan Assessment & Plan (1) Recurrent depressive disorder, current episode moderate: Status: Acute Code(s): F33.1 - Major depressive disorder, recurrent, moderate (2) PTSD (post-traumatic stress disorder): Status: Acute Code(s): F43.10 - Post-traumatic stress disorder, unspecified (3) Cocaine use disorder: Status: Acute Code(s): F14.10 - Cocaine abuse, uncomplicated Plan 44 yo female with history of recurrent MDD, PTSD, cocaine use disorder presents with increasing depression with SI in the setting of increase psychosocial stress, loss of custody of son, holidays and being away from home and residing in a sober house. Hospital course: 07/19: Increase Clonidine to 0.1 mg. Continue current management and treatment plan. 07/21 Patient reports ongoing depression; shared about events leading up to admission and how she was struggling with depression anxiety, attempted to relapse and asked to get help with crisis however found staff unhelpful. Patient also reports depression typically worsens in the winter time. At this point most of suicide ideation is gone. Reviewed medications and patient says increased Vraylar makes her too groggy the next day; Tegretol not tolerated; Abilify, lithium, Risperdal tried but not sure effect. 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 Has insomnia but says has been sleeping okay lately 07/22 still depressed; tolerating Wellbutrin; will likely increase 07/23 Patient reports mood is improving and agrees to increasing Wellbutrin. Remains sleeping well enough. Some concern for BV and panel ordered. Nursing mentioned yeast infection on body habitus and nystatin started -started nystatin for fungal infection -BV panel Plan: - CV Increased to Wellbutrin ER 300mg Clonidine 0.1. Baclofen to 10 mg TID. (Used for cocaine cravings.) - Collateral information from family and providers. - Milieu treatment and group therapy. - Social work evaluation. - Disposition planning. Patient educated on: diagnosis, medication risk/benefits and medical condition Informed Consent: understands Reason for continued inpatient stay Substantial Risk for: stable for discharge and rapid decompensation Time Spent With Patient Time: Total time managing care of this patient today ____ minutes.
[2024-07-23 20:00] VITALS: BP 141/74; PULSE 74; TEMP 36.7; O2SAT 97
[2024-07-23] MEDS: hydrOXYzine HCL 50 MG TABLET PO (20:32)
[2024-07-23] MEDS: QUEtiapine Fumarate 50 MG TABLET PO (20:32)
[2024-07-23] MEDS: Cariprazine HCl 3 MG CAPSULE PO (20:33)
[2024-07-23] MEDS: Sennosides 8.6 MG TABLET 17.2 MG PO (20:33)
[2024-07-23] MEDS: traZODone HCL 50 MG TABLET PO (20:33)
[2024-07-23 20:34] VITALS: BP 147/74
[2024-07-23] MEDS: cloNIDine HCL 0.1 MG TABLET PO (20:34)
[2024-07-23] MEDS: Nystatin Powder 15 GM BOTTLE 1 APPL TOPICAL (20:41)
[2024-07-24 08:14] VITALS: BP 100/56; PULSE 65; TEMP 36.4; O2SAT 96
[2024-07-24 08:33] LABS: Bacterial Vaginosis PCR POSITIVE (Negative); Candida Group PCR DETECTED (Not Detect); Candida glab krusei PCR DETECTED (Not Detect); Trichomonas vaginalis PCR NOT DETECTED (Not Detect)
[2024-07-24] MEDS: Omeprazole 20 MG CAPSULE.DR PO (08:48)
[2024-07-24] MEDS: buPROPion HCl XL 300 MG TAB.ER.24H PO (08:48)
[2024-07-24] MEDS: Furosemide 20 MG TABLET PO (08:49)
[2024-07-24] MEDS: Baclofen 10 MG TABLET PO ×3 (08:50→20:42)
[2024-07-24] MEDS: Docusate Sodium 100 MG CAPSULE PO ×2 (08:51→20:42)
[2024-07-24] MEDS: Nystatin Powder 15 GM BOTTLE 1 APPL TOPICAL (08:52)
[2024-07-24] MEDS: metroNIDAZOLE 500 MG TABLET PO ×2 (10:35→20:42)
--- NOTE | 2024-07-24 18:59 | P.PNPSI_ITS ---
Subjective Subjective Date of Service: 07/24/24 Reason For Visit: Depression,cannabis,cocaine,suboxone use D/O Interim History: Met with patient; discussed with team Patient reports she feels the increased Wellbutrin is making a difference in her depression is definitely better. She would like to leave medication dose flared his. Discussed positive BV and patient agrees to starting Flagyl. Patient accepted to program next Saturday for which she is grateful. Mental Status Exam Mental Status Exam Narrative: Pt is alert and oriented; behavior is cooperative, friendly on approach, more social and out in milieu much more; calm; patient is not in distress; dressed in hospital attire, malodorous; mood is described as better and affect congruent; eye contact appropriate; Speech is normal rate, volume and prosody and not pressured; no psychomotor retardation present; thought process is organized and goal directed; Thought content is on tx; otherwise pertinent to relevant topics and without any delusional content, paranoid ideations or grandiosity; No SI/HI. There is no evidence of perceptual disturbance. Patients insight and judgment fair. Diagnostics Vital Signs (24Hr): Vital Signs - 24 hr 07/23/24 20:00 07/23/24 20:34 07/24/24 08:14 Temperature 98.1 F 97.6 F Pulse Rate 74 65 Blood Pressure 141/74 H 147/74 H 100/56 L Pulse Oximetry 97 96 Oxygen Delivery Method Room Air Room Air BMI result Body Mass Index 57.9 Labs 07/16/24 01:17 07/16/24 01:17 Labs: Laboratory Results - last 48 hr 07/23/24 Unknown T. vaginalis (PCR) NOT DETECTED Bact vaginosis (PCR) POSITIVE A C. krusei/glabrata (PCR) DETECTED A Dania group (PCR) DETECTED A Imaging Radiology Impressions: ITS Impressions Chest X-Ray 07/16/24 01:00 IMPRESSION: Unremarkable examination. Electronically signed by: Gus Connelly MD 07/16/2024 01:46 AM [facility] Medications Medications Current Medications Acetaminophen (Acetaminophen 325 Mg Tablet) 650 mg PO Q6H PRN PRN Reason: Headache/Pain Mild Scale (1-3) Last Admin: 07/21/24 08:50 Dose: 650 mg Al Hydroxide/Mg Hydroxide (Magnesium Hydrox/Alum Hydrox 30 Ml Oral.Susp) 30 ml PO Q6H PRN PRN Reason: Heartburn/Nausea Baclofen (Baclofen 10 Mg Tablet) 10 mg PO TID [facility] Last Admin: 07/24/24 14:35 Dose: 10 mg Bupropion HCl (Bupropion Hcl Xl 300 Mg Tab.Er.24h) 300 mg PO DAILY [facility] Last Admin: 07/24/24 08:48 Dose: 300 mg Cariprazine (Cariprazine Hcl 3 Mg Capsule) 3 mg PO BEDTIME [facility] Last Admin: 07/23/24 20:33 Dose: 3 mg Clonidine HCl (Clonidine Hcl 0.1 Mg Tablet) 0.1 mg PO BEDTIME [facility]; Protocol Last Admin: 07/23/24 20:34 Dose: 0.1 mg Docusate Sodium (Docusate Sodium 100 Mg Capsule) 100 mg PO BID [facility] Last Admin: 07/24/24 08:51 Dose: 100 mg Furosemide (Furosemide 20 Mg Tablet) 20 mg PO DAILY [facility]; Protocol Last Admin: 07/24/24 08:49 Dose: 20 mg Hydroxyzine HCl (Hydroxyzine Hcl 50 Mg Tablet) 50 mg PO BEDTIME [facility] Last Admin: 07/23/24 20:32 Dose: 50 mg Ibuprofen (Ibuprofen 600 Mg Tablet) 600 mg PO Q8H PRN PRN Reason: Pain, Mild (Pain Scale 1-3) Last Admin: 07/23/24 08:31 Dose: 600 mg Loperamide HCl (Loperamide Hcl 2 Mg Capsule) 4 mg PO Q6H PRN PRN Reason: Diarrhea Last Admin: 07/17/24 19:27 Dose: 2 mg Magnesium Hydroxide (Milk Of Magnesia 30 Ml Oral.Susp) 30 ml PO DAILY PRN PRN Reason: Constipation Metronidazole (Metronidazole 500 Mg Tablet) 500 mg PO BID [facility] Last Admin: 07/24/24 10:35 Dose: 500 mg Nicotine (Nicotine 21 Mg Patch.Td24) 21 mg TRANSDERMA DAILY PRN PRN Reason: Nicotine Cravings Last Admin: 07/21/24 08:30 Dose: 21 mg Nicotine Polacrilex (Nicotine Polacrilex 2 Mg Gum) 4 mg BUCCAL Q2H PRN PRN Reason: Nicotine Cravings Last Admin: 07/21/24 16:25 Dose: 4 mg Nystatin (Nystatin Powder 15 Gm Bottle) 1 appl TOPICAL BID [facility]; Protocol Last Admin: 07/24/24 08:52 Dose: 1 appl Omeprazole (Omeprazole 20 Mg Capsule.Dr) 20 mg PO DAILY@0630 [facility] Last Admin: 07/24/24 08:48 Dose: 20 mg Quetiapine Fumarate (Quetiapine Fumarate 50 Mg Tablet) 50 mg PO BEDTIME [facility] Last Admin: 07/23/24 20:32 Dose: 50 mg Senna (Sennosides 8.6 Mg Tablet) 17.2 mg PO BEDTIME [facility] Last Admin: 07/23/24 20:33 Dose: 17.2 mg Trazodone HCl (Trazodone Hcl 50 Mg Tablet) 50 mg PO BEDTIME MRX1 PRN PRN Reason: Insomnia Last Admin: 07/23/24 20:33 Dose: 50 mg Allergies Allergies Allergy/AdvReac Type Severity Reaction Status Date / Time amoxicillin Allergy Unknown Unknown Verified 07/22/24 13:52 carbamazepine [From Tegretol] Allergy Unknown Verified 07/16/24 00:43 tizanidine Allergy Unknown Verified 07/16/24 00:43 erythromycin base AdvReac Stomach Verified 07/16/24 00:43 Upset Assessment & Plan Assessment & Plan (1) Recurrent depressive disorder, current episode moderate: Status: Acute Code(s): F33.1 - Major depressive disorder, recurrent, moderate (2) PTSD (post-traumatic stress disorder): Status: Acute Code(s): F43.10 - Post-traumatic stress disorder, unspecified (3) Cocaine use disorder: Status: Acute Code(s): F14.10 - Cocaine abuse, uncomplicated Plan 44 yo female with history of recurrent MDD, PTSD, cocaine use disorder presents with increasing depression with SI in the setting of increase psychosocial stress, loss of custody of son, holidays and being away from home and residing in a sober house. Hospital course: 07/19: Increase Clonidine to 0.1 mg. Continue current management and treatment plan. 07/21 Patient reports ongoing depression; shared about events leading up to admission and how she was struggling with depression anxiety, attempted to relapse and asked to get help with crisis however found staff unhelpful. Patient also reports depression typically worsens in the winter time. At this point most of suicide ideation is gone. Reviewed medications and patient says increased Vraylar makes her too groggy the next day; Tegretol not tolerated; Abilify, lithium, Risperdal tried but not sure effect. 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 Has insomnia but says has been sleeping okay lately 07/22 still depressed; tolerating Wellbutrin; will likely increase 07/23 Patient reports mood is improving and agrees to increasing Wellbutrin. Remains sleeping well enough. Some concern for BV and panel ordered. Nursing mentioned yeast infection on body habitus and nystatin started -started nystatin for fungal infection -BV panel 07/24 Patient reports she feels the increased Wellbutrin is making a difference in her depression is definitely better. She would like to leave medication dose flared his. Discussed positive BV and patient agrees to starting Flagyl. Patient accepted to program next Saturday for which she is grateful. -noticed also positive for vaginal C.kursei/glabrata; as often found it immunocompromised people will order HIV test; asked for consult regarding treatment Plan: - CV Start Flagyl 500 mg b.i.d. for BV -ordered consult regarding C.kursei/glabrata; amphotericin B or Flucytosine not on formulary Continue Wellbutrin ER 300mg Clonidine 0.1. Baclofen to 10 mg TID. (Used for cocaine cravings.) - Collateral information from family and providers. - Milieu treatment and group therapy. - Social work evaluation. - Disposition planning. Patient educated on: diagnosis, medication risk/benefits and medical condition Informed Consent: understands Reason for continued inpatient stay Substantial Risk for: stable for discharge Time Spent With Patient Time: Total time managing care of this patient today ____ minutes.
[2024-07-24 20:00] VITALS: BP 115/71; PULSE 70; TEMP 37; O2SAT 98
[2024-07-24 20:41] VITALS: BP 115/71
[2024-07-24] MEDS: cloNIDine HCL 0.1 MG TABLET PO (20:41)
[2024-07-24] MEDS: QUEtiapine Fumarate 50 MG TABLET PO (20:42)
[2024-07-24] MEDS: traZODone HCL 50 MG TABLET PO ×2 (20:42→23:40)
[2024-07-24] MEDS: Sennosides 8.6 MG TABLET 17.2 MG PO (20:42)
[2024-07-24] MEDS: Cariprazine HCl 3 MG CAPSULE PO (20:42)
[2024-07-24] MEDS: hydrOXYzine HCL 50 MG TABLET PO (20:42)
--- NOTE | 2024-07-25 00:43 | PM.EVENT ---
Event Note Date of Service: 07/25/24 Event Note: Patient is a 44-year-old female admitted to Psychiatric unit with hospitalist consult for vulvovaginal candidiasis treatment. Patient tested positive for bacterial vaginosis as well as c. krusei/glabrata candidiasis. For BV treat with metronidazole 500 mg b.i.d. x7 days. For candidiasis with c. krusei/glabrata that is mostly resistant to p.o. fluconazole, treat with clotrimazole 1% vaginal cream at bedtime x7 days. Time Spent With Patient Time: Total time managing care of this patient today ____ minutes.
[2024-07-25] MEDS: Omeprazole 20 MG CAPSULE.DR PO (07:06)
[2024-07-25] MEDS: Ibuprofen 600 MG TABLET PO (07:16)
[2024-07-25] MEDS: Baclofen 10 MG TABLET PO ×3 (09:22→20:53)
[2024-07-25] MEDS: metroNIDAZOLE 500 MG TABLET PO ×2 (09:22→20:52)
[2024-07-25] MEDS: Docusate Sodium 100 MG CAPSULE PO ×2 (09:22→20:53)
[2024-07-25] MEDS: Furosemide 20 MG TABLET PO (09:22)
[2024-07-25] MEDS: buPROPion HCl XL 300 MG TAB.ER.24H PO (09:22)
[2024-07-25] MEDS: Nystatin Powder 15 GM BOTTLE 1 APPL TOPICAL ×2 (09:23→20:53)
[2024-07-25 09:30] VITALS: BP 109/59; PULSE 59; RESP 18; TEMP 36.4; O2SAT 97
--- NOTE | 2024-07-25 09:42 | HO.PSYCHPN ---
Subjective Subjective Date of Service: 07/25/24 Reason For Visit: Depression,cannabis,cocaine,suboxone use D/O Interim History: Met with patient; discussed with team Patient feels overall better, mood better, depression significantly reduced; sleeping well. Discussed labs and Dania results with candidiasis with c. krusei/glabrata; patient denies any exposure to HIV and says she was negative for HIV test 6 months ago; does not want repeat test. She reports having rheumatoid arthritis which could contribute to immunosuppressants. Agrees to proposed treatment plan. Otherwise looking forward to discharging Saturday to program Mental Status Exam Mental Status Exam Narrative: Pt is alert and oriented; behavior is cooperative, friendly on approach, more social and out in milieu much more; calm; patient is not in distress; dressed in hospital attire, malodorous; mood is described as good and affect congruent; eye contact appropriate; Speech is normal rate, volume and prosody and not pressured; no psychomotor retardation present; thought process is organized and goal directed; Thought content is on tx; otherwise pertinent to relevant topics and without any delusional content, paranoid ideations or grandiosity; No SI/HI. There is no evidence of perceptual disturbance. Patients insight and judgment fair. Diagnostics Vital Signs (24Hr): Vital Signs - 24 hr 07/24/24 20:00 07/24/24 20:41 07/25/24 09:30 Temperature 98.6 F 97.5 F Pulse Rate 70 59 Respiratory Rate 18 Blood Pressure 115/71 115/71 109/59 L Pulse Oximetry 98 97 Oxygen Delivery Method Room Air Room Air BMI result Body Mass Index 57.9 Labs 07/16/24 01:17 07/16/24 01:17 Labs: Laboratory Results - last 48 hr 07/23/24 Unknown T. vaginalis (PCR) NOT DETECTED Bact vaginosis (PCR) POSITIVE A C. krusei/glabrata (PCR) DETECTED A Dania group (PCR) DETECTED A Imaging Radiology Impressions: ITS Impressions Chest X-Ray 07/16/24 01:00 IMPRESSION: Unremarkable examination. Electronically signed by: Gus Connelly MD 07/16/2024 01:46 AM [facility] Medications Medications Current Medications Acetaminophen (Acetaminophen 325 Mg Tablet) 650 mg PO Q6H PRN PRN Reason: Headache/Pain Mild Scale (1-3) Last Admin: 07/21/24 08:50 Dose: 650 mg Al Hydroxide/Mg Hydroxide (Magnesium Hydrox/Alum Hydrox 30 Ml Oral.Susp) 30 ml PO Q6H PRN PRN Reason: Heartburn/Nausea Baclofen (Baclofen 10 Mg Tablet) 10 mg PO TID [facility] Last Admin: 07/25/24 09:22 Dose: 10 mg Bupropion HCl (Bupropion Hcl Xl 300 Mg Tab.Er.24h) 300 mg PO DAILY [facility] Last Admin: 07/25/24 09:22 Dose: 300 mg Cariprazine (Cariprazine Hcl 3 Mg Capsule) 3 mg PO BEDTIME [facility] Last Admin: 07/24/24 20:42 Dose: 3 mg Clonidine HCl (Clonidine Hcl 0.1 Mg Tablet) 0.1 mg PO BEDTIME [facility]; Protocol Last Admin: 07/24/24 20:41 Dose: 0.1 mg Clotrimazole (Clotrimazole 1 % Vaginal Cream 45 Gm Tube) 1 appl VAGINAL BEDTIME [facility] Stop: 07/31/24 21:01 Docusate Sodium (Docusate Sodium 100 Mg Capsule) 100 mg PO BID [facility] Last Admin: 07/25/24 09:22 Dose: 100 mg Furosemide (Furosemide 20 Mg Tablet) 20 mg PO DAILY [facility]; Protocol Last Admin: 07/25/24 09:22 Dose: 20 mg Hydroxyzine HCl (Hydroxyzine Hcl 50 Mg Tablet) 50 mg PO BEDTIME [facility] Last Admin: 07/24/24 20:42 Dose: 50 mg Ibuprofen (Ibuprofen 600 Mg Tablet) 600 mg PO Q8H PRN PRN Reason: Pain, Mild (Pain Scale 1-3) Last Admin: 07/25/24 07:16 Dose: 600 mg Loperamide HCl (Loperamide Hcl 2 Mg Capsule) 4 mg PO Q6H PRN PRN Reason: Diarrhea Last Admin: 07/17/24 19:27 Dose: 2 mg Magnesium Hydroxide (Milk Of Magnesia 30 Ml Oral.Susp) 30 ml PO DAILY PRN PRN Reason: Constipation Metronidazole (Metronidazole 500 Mg Tablet) 500 mg PO BID [facility] Stop: 07/31/24 10:04 Last Admin: 07/25/24 09:22 Dose: 500 mg Nicotine (Nicotine 21 Mg Patch.Td24) 21 mg TRANSDERMA DAILY PRN PRN Reason: Nicotine Cravings Last Admin: 07/21/24 08:30 Dose: 21 mg Nicotine Polacrilex (Nicotine Polacrilex 2 Mg Gum) 4 mg BUCCAL Q2H PRN PRN Reason: Nicotine Cravings Last Admin: 07/21/24 16:25 Dose: 4 mg Nystatin (Nystatin Powder 15 Gm Bottle) 1 appl TOPICAL BID [facility]; Protocol Last Admin: 07/25/24 09:23 Dose: 1 appl Omeprazole (Omeprazole 20 Mg Capsule.Dr) 20 mg PO DAILY@0630 [facility] Last Admin: 07/25/24 07:06 Dose: 20 mg Quetiapine Fumarate (Quetiapine Fumarate 50 Mg Tablet) 50 mg PO BEDTIME [facility] Last Admin: 07/24/24 20:42 Dose: 50 mg Senna (Sennosides 8.6 Mg Tablet) 17.2 mg PO BEDTIME [facility] Last Admin: 07/24/24 20:42 Dose: 17.2 mg Trazodone HCl (Trazodone Hcl 50 Mg Tablet) 50 mg PO BEDTIME MRX1 PRN PRN Reason: Insomnia Last Admin: 07/24/24 23:40 Dose: 50 mg Allergies Allergies Allergy/AdvReac Type Severity Reaction Status Date / Time amoxicillin Allergy Unknown Unknown Verified 07/22/24 13:52 carbamazepine [From Tegretol] Allergy Unknown Verified 07/16/24 00:43 tizanidine Allergy Unknown Verified 07/16/24 00:43 erythromycin base AdvReac Stomach Verified 07/16/24 00:43 Upset Assessment & Plan Assessment & Plan (1) Recurrent depressive disorder, current episode moderate: Status: Acute Code(s): F33.1 - Major depressive disorder, recurrent, moderate (2) PTSD (post-traumatic stress disorder): Status: Acute Code(s): F43.10 - Post-traumatic stress disorder, unspecified (3) Cocaine use disorder: Status: Acute Code(s): F14.10 - Cocaine abuse, uncomplicated Plan 44 yo female with history of recurrent MDD, PTSD, cocaine use disorder presents with increasing depression with SI in the setting of increase psychosocial stress, loss of custody of son, holidays and being away from home and residing in a sober house. Hospital course: 07/19: Increase Clonidine to 0.1 mg. Continue current management and treatment plan. 07/21 Patient reports ongoing depression; shared about events leading up to admission and how she was struggling with depression anxiety, attempted to relapse and asked to get help with crisis however found staff unhelpful. Patient also reports depression typically worsens in the winter time. At this point most of suicide ideation is gone. Reviewed medications and patient says increased Vraylar makes her too groggy the next day; Tegretol not tolerated; Abilify, lithium, Risperdal tried but not sure effect. 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 Has insomnia but says has been sleeping okay lately 07/22 still depressed; tolerating Wellbutrin; will likely increase 07/23 Patient reports mood is improving and agrees to increasing Wellbutrin. Remains sleeping well enough. Some concern for BV and panel ordered. Nursing mentioned yeast infection on body habitus and nystatin started -started nystatin for fungal infection -BV panel 07/24 Patient reports she feels the increased Wellbutrin is making a difference in her depression is definitely better. She would like to leave medication dose flared his. Discussed positive BV and patient agrees to starting Flagyl. Patient accepted to program next Saturday for which she is grateful. -noticed also positive for vaginal C.kursei/glabrata; as often found it immunocompromised people will order HIV test; asked for consult regarding treatment 07/25 Patient feels overall better, mood better, depression significantly reduced; sleeping well. Discussed labs and [facility]ia results with candidiasis with c. krusei/glabrata; patient denies any exposure to HIV and says she was negative for HIV test 6 months ago; does not want repeat test. She reports having rheumatoid arthritis which could contribute to immunosuppressants. Agrees to proposed treatment plan. Otherwise looking forward to discharging Saturday to program Plan: - CV Continue Flagyl 500 mg b.i.d. for BV -candidiasis with c. krusei/glabrata that is mostly resistant to p.o. fluconazole, treat with clotrimazole 1% vaginal cream at bedtime x7 days Continue Wellbutrin ER 300mg Clonidine 0.1. Baclofen to 10 mg TID. (Used for cocaine cravings.) - Collateral information from family and providers. - Milieu treatment and group therapy. - Social work evaluation. - Disposition planning. Patient educated on: diagnosis, medication risk/benefits, therapeutic strategies and medical condition Informed Consent: understands Reason for continued inpatient stay Substantial Risk for: stable for discharge Time Spent With Patient Time: Total time managing care of this patient today ____ minutes.
[2024-07-25 20:00] VITALS: BP 113/60; PULSE 75; O2SAT 97
[2024-07-25 20:52] VITALS: BP 113/60
[2024-07-25] MEDS: Sennosides 8.6 MG TABLET 17.2 MG PO (20:52)
[2024-07-25] MEDS: hydrOXYzine HCL 50 MG TABLET PO (20:52)
[2024-07-25] MEDS: cloNIDine HCL 0.1 MG TABLET PO (20:52)
[2024-07-25] MEDS: Clotrimazole 1 % Vaginal Cream 45 GM TUBE 1 APPL VAGINAL (20:53)
[2024-07-25] MEDS: Acetaminophen 325 MG TABLET 650 MG PO (20:53)
[2024-07-25] MEDS: QUEtiapine Fumarate 50 MG TABLET PO (20:53)
[2024-07-25] MEDS: Cariprazine HCl 3 MG CAPSULE PO (21:17)
[2024-07-26] MEDS: Omeprazole 20 MG CAPSULE.DR PO (06:55)
[2024-07-26] MEDS: Baclofen 10 MG TABLET PO ×3 (08:40→20:56)
[2024-07-26] MEDS: metroNIDAZOLE 500 MG TABLET PO ×2 (08:40→20:56)
[2024-07-26] MEDS: buPROPion HCl XL 300 MG TAB.ER.24H PO (08:40)
[2024-07-26] MEDS: Docusate Sodium 100 MG CAPSULE PO ×2 (08:40→20:56)
[2024-07-26] MEDS: Furosemide 20 MG TABLET PO (08:40)
[2024-07-26 08:42] VITALS: BP 95/58; PULSE 58; RESP 18; TEMP 36.3; O2SAT 97
[2024-07-26] MEDS: Nicotine 21 MG PATCH.TD24 TRANSDERMA (10:35)
--- NOTE | 2024-07-26 10:37 | P.PNPSI_ITS ---
Subjective Subjective Date of Service: 07/26/24 Reason For Visit: Depression,cannabis,cocaine,suboxone use D/O Interim History: Met with patient; discussed with team Patient reports mood is overall good and though anxious about discharge tomorrow, she is optimistic and looking forward to it. No complaints and no request. Sleeping well. Mental Status Exam Mental Status Exam Narrative: Pt is alert and oriented; behavior is cooperative, friendly on approach, more social and out in milieu much more; calm; patient is not in distress; dressed in hospital attire, improved hygiene; mood is described as good and affect congruent; eye contact appropriate; Speech is normal rate, volume and prosody and not pressured; no psychomotor retardation present; thought process is organized and goal directed; Thought content is on tx; otherwise pertinent to relevant topics and without any delusional content, paranoid ideations or grandiosity; No SI/HI. There is no evidence of perceptual disturbance. Patients insight and judgment fair. Diagnostics Vital Signs (24Hr): Vital Signs - 24 hr 07/25/24 20:00 07/25/24 20:52 07/26/24 08:42 Temperature 97.4 F Pulse Rate 75 58 Respiratory Rate 18 Blood Pressure 113/60 113/60 95/58 L Pulse Oximetry 97 97 Oxygen Delivery Method Room Air Room Air BMI result Body Mass Index 57.9 Labs 07/16/24 01:17 07/16/24 01:17 Imaging Radiology Impressions: ITS Impressions Chest X-Ray 07/16/24 01:00 IMPRESSION: Unremarkable examination. Electronically signed by: Gus Connelly MD 07/16/2024 01:46 AM [facility] Medications Medications Current Medications Acetaminophen (Acetaminophen 325 Mg Tablet) 650 mg PO Q6H PRN PRN Reason: Headache/Pain Mild Scale (1-3) Last Admin: 07/25/24 20:53 Dose: 650 mg Al Hydroxide/Mg Hydroxide (Magnesium Hydrox/Alum Hydrox 30 Ml Oral.Susp) 30 ml PO Q6H PRN PRN Reason: Heartburn/Nausea Baclofen (Baclofen 10 Mg Tablet) 10 mg PO TID [facility] Last Admin: 07/26/24 08:40 Dose: 10 mg Bupropion HCl (Bupropion Hcl Xl 300 Mg Tab.Er.24h) 300 mg PO DAILY [facility] Last Admin: 07/26/24 08:40 Dose: 300 mg Cariprazine (Cariprazine Hcl 3 Mg Capsule) 3 mg PO BEDTIME [facility] Last Admin: 07/25/24 21:17 Dose: 3 mg Clonidine HCl (Clonidine Hcl 0.1 Mg Tablet) 0.1 mg PO BEDTIME [facility]; Protocol Last Admin: 07/25/24 20:52 Dose: 0.1 mg Clotrimazole (Clotrimazole 1 % Vaginal Cream 45 Gm Tube) 1 appl VAGINAL BEDTIME [facility] Stop: 07/31/24 21:01 Last Admin: 07/25/24 20:53 Dose: 1 appl Docusate Sodium (Docusate Sodium 100 Mg Capsule) 100 mg PO BID [facility] Last Admin: 07/26/24 08:40 Dose: 100 mg Furosemide (Furosemide 20 Mg Tablet) 20 mg PO DAILY [facility]; Protocol Last Admin: 07/26/24 08:40 Dose: 20 mg Hydroxyzine HCl (Hydroxyzine Hcl 50 Mg Tablet) 50 mg PO BEDTIME [facility] Last Admin: 07/25/24 20:52 Dose: 50 mg Ibuprofen (Ibuprofen 600 Mg Tablet) 600 mg PO Q8H PRN PRN Reason: Pain, Mild (Pain Scale 1-3) Last Admin: 07/25/24 07:16 Dose: 600 mg Loperamide HCl (Loperamide Hcl 2 Mg Capsule) 4 mg PO Q6H PRN PRN Reason: Diarrhea Last Admin: 07/17/24 19:27 Dose: 2 mg Magnesium Hydroxide (Milk Of Magnesia 30 Ml Oral.Susp) 30 ml PO DAILY PRN PRN Reason: Constipation Metronidazole (Metronidazole 500 Mg Tablet) 500 mg PO BID [facility] Stop: 07/31/24 10:04 Last Admin: 07/26/24 08:40 Dose: 500 mg Nicotine (Nicotine 21 Mg Patch.Td24) 21 mg TRANSDERMA DAILY PRN PRN Reason: Nicotine Cravings Last Admin: 07/26/24 10:35 Dose: 21 mg Nicotine Polacrilex (Nicotine Polacrilex 2 Mg Gum) 4 mg BUCCAL Q2H PRN PRN Reason: Nicotine Cravings Last Admin: 07/21/24 16:25 Dose: 4 mg Nystatin (Nystatin Powder 15 Gm Bottle) 1 appl TOPICAL BID [facility]; Protocol Last Admin: 07/26/24 09:07 Dose: Not Given Omeprazole (Omeprazole 20 Mg Capsule.Dr) 20 mg PO DAILY@0630 [facility] Last Admin: 07/26/24 06:55 Dose: 20 mg Quetiapine Fumarate (Quetiapine Fumarate 50 Mg Tablet) 50 mg PO BEDTIME [facility] Last Admin: 07/25/24 20:53 Dose: 50 mg Senna (Sennosides 8.6 Mg Tablet) 17.2 mg PO BEDTIME [facility] Last Admin: 07/25/24 20:52 Dose: 17.2 mg Trazodone HCl (Trazodone Hcl 50 Mg Tablet) 50 mg PO BEDTIME MRX1 PRN PRN Reason: Insomnia Last Admin: 07/24/24 23:40 Dose: 50 mg Allergies Allergies Allergy/AdvReac Type Severity Reaction Status Date / Time amoxicillin Allergy Unknown Unknown Verified 07/22/24 13:52 carbamazepine [From Tegretol] Allergy Unknown Verified 07/16/24 00:43 tizanidine Allergy Unknown Verified 07/16/24 00:43 erythromycin base AdvReac Stomach Verified 07/16/24 00:43 Upset Assessment & Plan Assessment & Plan (1) Recurrent depressive disorder, current episode moderate: Status: Acute Code(s): F33.1 - Major depressive disorder, recurrent, moderate (2) PTSD (post-traumatic stress disorder): Status: Acute Code(s): F43.10 - Post-traumatic stress disorder, unspecified (3) Cocaine use disorder: Status: Acute Code(s): F14.10 - Cocaine abuse, uncomplicated Plan 44 yo female with history of recurrent MDD, PTSD, cocaine use disorder presents with increasing depression with SI in the setting of increase psychosocial stress, loss of custody of son, holidays and being away from home and residing in a sober house. Hospital course: 07/19: Increase Clonidine to 0.1 mg. Continue current management and treatment plan. 07/21 Patient reports ongoing depression; shared about events leading up to admission and how she was struggling with depression anxiety, attempted to relapse and asked to get help with crisis however found staff unhelpful. Patient also reports depression typically worsens in the winter time. At this point most of suicide ideation is gone. Reviewed medications and patient says increased Vraylar makes her too groggy the next day; Tegretol not tolerated; Abilify, lithium, Risperdal tried but not sure effect. She has not tried Wellbutrin and principal technical writer reviewed risks/side effects and patient agrees to start. Has insomnia but says has been sleeping okay lately 07/22 still depressed; tolerating Wellbutrin; will likely increase 07/23 Patient reports mood is improving and agrees to increasing Wellbutrin. Remains sleeping well enough. Some concern for BV and panel ordered. Nursing mentioned yeast infection on body habitus and nystatin started -started nystatin for fungal infection -BV panel 07/24 Patient reports she feels the increased Wellbutrin is making a difference in her depression is definitely better. She would like to leave medication dose flared his. Discussed positive BV and patient agrees to starting Flagyl. Patient accepted to program next Saturday for which she is grateful. -noticed also positive for vaginal C.kursei/glabrata; as often found it immunocompromised people will order HIV test; asked for consult regarding treatment 07/25 Patient feels overall better, mood better, depression significantly reduced; sleeping well. Discussed labs and Dania results with candidiasis with c. krusei/glabrata; patient denies any exposure to HIV and says she was negative for HIV test 6 months ago; does not want repeat test. She reports having rheumatoid arthritis which could contribute to immunosuppressants. Agrees to proposed treatment plan. Otherwise looking forward to discharging Saturday to program 07/26 Patient much improved and reports depression is mostly resolved and that she is in a good mood. Anxious about discharge tomorrow but optimistic about remaining stable and sober. Patient without any SI, eating and sleeping well. Patient of course remains vulnerable to relapse however this is a chronic struggle for her, of which she is well aware and eager with which to remain in treatment. She is discharging to supportive and therapeutic environment. Patient is not in imminent risk for harm to self or others and appropriate to return to the community for treatment Plan: - CV Continue Flagyl 500 mg b.i.d. for BV -candidiasis with c. krusei/glabrata that is mostly resistant to p.o. fluconazole, treat with clotrimazole 1% vaginal cream at bedtime x7 days Continue Wellbutrin ER 300mg Clonidine 0.1. Baclofen to 10 mg TID. (Used for cocaine cravings.) - Collateral information from family and providers. - Milieu treatment and group therapy. - Social work evaluation. - Disposition planning. Patient educated on: diagnosis, medication risk/benefits, substance abuse and therapeutic strategies Informed Consent: understands Reason for continued inpatient stay Substantial Risk for: stable for discharge Time Spent With Patient Time: Total time managing care of this patient today ____ minutes.
[2024-07-26] MEDS: Nicotine Polacrilex 2 MG GUM 4 MG BUCCAL (15:36)
[2024-07-26] MEDS: Nystatin Powder 15 GM BOTTLE 1 APPL TOPICAL (18:20)
[2024-07-26 20:00] VITALS: BP 132/78; PULSE 77; RESP 15; TEMP 35.9; O2SAT 99
[2024-07-26] MEDS: Sennosides 8.6 MG TABLET 17.2 MG PO (20:55)
[2024-07-26] MEDS: cloNIDine HCL 0.1 MG TABLET PO (20:56)
[2024-07-26] MEDS: Cariprazine HCl 3 MG CAPSULE PO (20:56)
[2024-07-26] MEDS: QUEtiapine Fumarate 50 MG TABLET PO (20:56)
[2024-07-26] MEDS: hydrOXYzine HCL 50 MG TABLET PO (20:56)
[2024-07-26] MEDS: Ibuprofen 600 MG TABLET PO (20:57)
[2024-07-26] MEDS: traZODone HCL 50 MG TABLET PO (20:57)
[2024-07-26] MEDS: Clotrimazole 1 % Vaginal Cream 45 GM TUBE 1 APPL VAGINAL (21:44)
--- NOTE | 2024-07-26 23:38 | P.DS_ITS ---
DS: Providers Provider Date of Service: 07/27/24 Date of admission: 07/17/24 14:41 Date of discharge: 07/27/24 Primary care physician: Tom Plaza MD Attending physician on admission: Beau Rubalcava Consults: 07/24/24 18:40 Consult to Hospitalist Routine Comment: Consulting Provider: [facility] Hospitalists Reason For Exam: recs: C.kursei/glabrata (resitant? amphB not form) Attending physician on discharge: Shailesh Choi DS: Diagnosis Discharge Diagnosis (1) Recurrent depressive disorder, current episode moderate: Status: Acute (2) PTSD (post-traumatic stress disorder): Status: Acute (3) Cocaine use disorder: Status: Acute DS: Medications Discharge Medications Home Medications: Previous Rx's ?Medication ?Instructions ?Recorded albuterol sulfate 90 mcg/actuation 2 puff inhalation Q6H PRN 07/16/24 aerosol inhaler shortness of breath or wheezing #8.5 grams baclofen 10 mg tablet 10 mg PO TID 30 days #90 tabs 07/26/24 bupropion HCl 300 mg 24 hr tablet, 300 mg PO DAILY 30 days #30 tabs 07/26/24 extended release cariprazine 3 mg capsule (Vraylar) 3 mg PO BEDTIME 30 days #30 caps 07/26/24 clonidine HCl 0.1 mg tablet 0.1 mg PO BEDTIME 30 days #30 tabs 07/26/24 clotrimazole 1 % vaginal cream 1 appl vaginal BEDTIME 4 days #45 07/26/24 grams docusate sodium 100 mg capsule 100 mg PO BID 30 days #60 caps 07/26/24 furosemide 20 mg tablet 20 mg PO DAILY 30 days #30 tabs 07/26/24 hydroxyzine HCl 50 mg tablet 50 mg PO BEDTIME 30 days #30 tabs 07/26/24 ibuprofen 600 mg tablet 600 mg PO Q8H PRN Pain, Mild (Pain 07/26/24 Scale 1-3) #0 tabs metronidazole 500 mg tablet 500 mg PO BID 4 days #7 tabs 07/26/24 nicotine (polacrilex) 2 mg gum 2 mg buccal Q2H PRN Nicotine 07/26/24 Cravings 30 days #100 ea nicotine 21 mg/24 hr daily 21 mg transdermal DAILY PRN 07/26/24 transdermal patch Nicotine Cravings 28 days #28 ea nystatin 100,000 unit/gram topical 1 appl topical BID 14 days #15 07/26/24 powder grams omeprazole 20 mg capsule,delayed 20 mg PO DAILY@0630 30 days #30 07/26/24 release caps quetiapine 50 mg tablet 50 mg PO BEDTIME 30 days #30 tabs 07/26/24 sennosides 8.6 mg tablet (senna) 17.2 mg (2 x 8.6 mg) PO BEDTIME 30 07/26/24 days #60 tabs trazodone 50 mg tablet 50 mg PO BEDTIME PRN Insomnia 30 07/26/24 days #30 tabs Mental Status Exam Mental Status Exam Narrative: Pt is alert and oriented; behavior is cooperative, friendly on approach, more social and out in milieu much more; calm; patient is not in distress; adequate hygiene and grooming; mood is described is good and affect congruent; eye contact appropriate; Speech is normal rate, volume and prosody and not pressured; no psychomotor retardation present; thought process is organized and goal directed; Thought content is on tx; otherwise pertinent to relevant topics and without any delusional content, paranoid ideations or grandiosity; No SI/HI. There is no evidence of perceptual disturbance. Patients insight and judgment fair. Data Data Completed and Pending Completed studies during hospitalization [Text1]: 07/23/24 Unknown T. vaginalis (PCR) NOT DETECTED Bact vaginosis (PCR) POSITIVE A C. krusei/glabrata (PCR) DETECTED A Dania group (PCR) DETECTED A Imaging Diagnostic Imaging Impressions Chest X-Ray 07/16/24 01:00 IMPRESSION: Unremarkable examination. Electronically signed by: Gus Connelly MD 07/16/2024 01:46 AM [facility] DS: Summary Hospital Course Hospital Course: HPI: 44 yo female, originally from [facility] currently residing at a half way [facility] in [place]. Patient has a history of depression, anxiety, and PTSD. Patient reports that over the last 2-3 weeks she has been feeling increasingly depressed. She says she told the staff at the program but was ignored. She left the program for a day and relapsed on cocaine. She developed URI symptoms and was brought top the ED. While in the ED she reported her depressive symptoms to the ED physician and was seen by the CARE team, she voiced SI and inpatient hospitalization was recommended. She was started on Prednisone and antibiotics for her URI. She has been at the current program for 2 months. She was in a program in [place] before. Patient reports triggers for her depression include the holidays, being far away from home, having a guardianship hearing 3 weeks ago for her 13 yo son who lives with her mother for the last couple of years, and the stress of living at the half way house. She reports they have long days full of groups and she finds it stressful and tiring. Depressive symptoms include depressed mood, decrease sleep, racing thoughts, withdrawal, poor appetite, and poor self care. She reported SI without a plan. She has increased anxiety and starts rocking when increasingly depressed. She has been maintained on Vraylar 3 mg. Higher dose was not effective and made her tired. She reports Clonidine has been helpful in the past and wants to retry that. 44 yo female with history of recurrent MDD, PTSD, cocaine use disorder presents with increasing depression with SI in the setting of increase psychosocial stress, loss of custody of son, holidays and being away from home and residing in a sober house. Hospital course: Patient depressed on admission with some passive SI which soon fully resolved.. Patient was continued Vraylar which she thought helped some but did not tolerate increasing the dose as it made her too groggy the next day. Because of this and due to to ongoing depression patient was started on Wellbutrin which was titrated and found to be helpful. Patient's mood improved and she was out and about in the milieu more. She still mostly kept to herself but was intermittently social and attended some groups. Patient was sleeping well with increase clonidine. While on the unit, she was treated for BV with Flagyl and clotrimazole for candidiasis. Patient remained in good behavioral and impulse control throughout her time in the unit. She reported that depression resolved, her mood was good and that she was optimistic about staying sober, grateful to get into a program. By end of her admission, Patient remained much improved and reports depression is mostly resolved and that she is in a good mood. Anxious about discharge tomorrow but optimistic about remaining stable and sober. Patient without any SI, eating and sleeping well. Patient of course remains vulnerable to relapse however this is a chronic struggle for her, of which she is well aware and eager with which to remain in treatment. She is discharging to supportive and therapeutic environment. Patient is not in imminent risk for harm to self or others and appropriate to return to the community for treatment Time spent discussing smoking cessation with patient: 3 to 10 minutes Status at Discharge Functional status at discharge: independent ambulation Overall status at discharge: patient is back to baseline Time Spent with Patient Time attestation: Total time managing care of this patient today ____ minutes. Time spent: Less than 30 minutes Specific discharge activities: Discussed with team; charting, prescriptions Discharge Plan Discharge Anticipated Discharge Date/Time: 07/27/24 11:00 Patient Disposition: Long-Term Discharge Diagnosis: MDD, recurrent, severe w/out psychosis in full remission Referrals: Tom Plaza MD [Primary Care Provider] - 1 Week Discharge Medications: New albuterol sulfate 90 mcg/actuation HFA aerosol inhaler 2 puff inhalation Q6H PRN (Reason: shortness of breath or wheezing) Qty: 8.5 0RF metronidazole 500 mg Tablet 500 mg PO BID 4 Days Qty: 7 0RF nicotine 21 mg/24 hr Patch 24 Hour 21 mg transdermal DAILY PRN (Reason: Nicotine Cravings) 28 Days Qty: 28 1RF nicotine (polacrilex) 2 mg Gum 2 mg buccal Q2H PRN (Reason: Nicotine Cravings) 30 Days Qty: 100 1RF clonidine HCl 0.1 mg Tablet 0.1 mg PO BEDTIME 30 Days Qty: 30 1RF Protocol: Hold for SBP< HOLD for SBP < : 90 bupropion HCl 300 mg Tablet Extended Release 24 Hr 300 mg PO DAILY 30 Days Qty: 30 1RF ibuprofen 600 mg Tablet 600 mg PO Q8H PRN (Reason: Pain, Mild (Pain Scale 1-3)) Qty: 0 0RF trazodone 50 mg Tablet 50 mg PO BEDTIME PRN (Reason: Insomnia) 30 Days Qty: 30 1RF clotrimazole 1 % Cream 1 appl vaginal BEDTIME 4 Days Qty: 45 0RF nystatin 100,000 unit/gram Powder 1 appl topical BID 14 Days Qty: 15 0RF Protocol: Apply to: Apply to: affected areas Continued sennosides [senna] 8.6 mg Tablet 17.2 mg PO BEDTIME 30 Days Qty: 60 1RF hydroxyzine HCl 50 mg tablet 50 mg PO BEDTIME 30 Days Qty: 30 1RF docusate sodium 100 mg capsule 100 mg PO BID 30 Days Qty: 60 1RF omeprazole 20 mg capsule,delayed release(DR/EC) 20 mg PO DAILY@0630 30 Days Qty: 30 1RF furosemide 20 mg tablet 20 mg PO DAILY 30 Days Qty: 30 1RF quetiapine 50 mg tablet 50 mg PO BEDTIME 30 Days Qty: 30 1RF Vraylar 3 mg capsule 3 mg PO BEDTIME 30 Days Qty: 30 1RF Changed baclofen 10 mg tablet 10 mg PO TID 30 Days Qty: 90 1RF Discontinued Zepbound 2.5 mg/0.5 mL pen injector 2.5 mg subcut TH@0900 Discharge Orders: Discharge Order (Routine); Ordered 07/27/24 Ordered By: Shailesh Choi Diet: Regular diet Activity on Discharge: As tolerated Stand Alone Forms: Patient Portal Discharge page, Community Support Print Language: Welsh Activity Restrictions/Additional Instructions: Take antibiotics and prednisone as prescribed Cough drops as prescribed Follow up with the therapist Care Plan Goals: Maintain mood and safe behaviors Take medications as prescribed Continue to pursue sobriety Practice coping skills Continue with outpatient providers and reach out to them as needed Health Concerns: Mood stability and behaviors Sobriety Plan of Treatment: Follow up with your PCP, psychiatric provider and other outpatient providers regarding above concerns Take medications as prescribed Assessment: Risk assessment at time of discharge:? Patient was interviewed prior to discharge and found to be fully oriented and without any SI or HI. Patient has improved insight and judgment and wants to continue treatment. Patient is not in imminent risk of harm to self or others and has a safety plan that includes presenting to the closest ER or calling 911 if feeling unsafe.? Patient has been observed closely by nursing and unit staff throughout admission; patient has not engaged in any behaviors that suggest dangerousness to self or others and has demonstrated appropriate behaviors and impulse control Discharge Date/Time: 07/27/24 10:43
[2024-07-27] MEDS: Omeprazole 20 MG CAPSULE.DR PO (07:03)
[2024-07-27 08:00] VITALS: BP 106/60; PULSE 57; RESP 16; TEMP 36.4; O2SAT 98
[2024-07-27 09:26] VITALS: BP 106/60
[2024-07-27] MEDS: Baclofen 10 MG TABLET PO (09:26)
[2024-07-27] MEDS: buPROPion HCl XL 300 MG TAB.ER.24H PO (09:26)
[2024-07-27] MEDS: Furosemide 20 MG TABLET PO (09:26)
[2024-07-27] MEDS: Docusate Sodium 100 MG CAPSULE PO (09:26)
[2024-07-27] MEDS: metroNIDAZOLE 500 MG TABLET PO (09:27)
== END 2024-07-27 10:43 | disposition home or self-care (01) | DRG 751 ==
LOC: HO.ED 07-17 08:21 → HO.PM5 07-17 15:35
PROVIDERS: Clinical Nurse Specialist Psychiatric/Mental Health, Adult; Emergency Medicine; Internal Medicine; Admitting Provider Psychiatry & Neurology Psychiatry; Emergency Provider Emergency Medicine Emergency Medical Services; PCP Family Medicine; Visit Provider Psychiatry & Neurology Psychiatry
DX: F33.1 Major depressive disorder, recurrent, moderate (principal); R45.851 Suicidal ideations; B37.31 Acute candidiasis of vulva and vagina; N76.0 Acute vaginitis; F17.290 Nicotine dependence, other tobacco product, uncomplicated; Z71.6 Tobacco abuse counseling; F43.10 Post-traumatic stress disorder, unspecified; F14.10 Cocaine abuse, uncomplicated; Z79.899 Other long term (current) drug therapy
CPT/HCPCS: 0241U; 0352U; 36415; 71046; 80048; 80061; 80307; 81003; 81025; 82607; 82746; 83036; 83735; 84439; 84443; 85027; 93005; 99285; S9485

== ENCOUNTER → 2024-07-17 11:00 | Outpatient (BNV) | payer OTHER, SELFPAY | PROVIDERS: Admitting Provider Psychiatry & Neurology Psychiatry; Emergency Provider Emergency Medicine Emergency Medical Services; PCP Family Medicine; Visit Provider Internal Medicine | DX: I45.81 Long QT syndrome (principal) | CPT/HCPCS: 93010 ==

== ENCOUNTER → 2024-07-17 14:41 | Outpatient (BNV) | payer OTHER, SELFPAY | PROVIDERS: Admitting Provider Psychiatry & Neurology Psychiatry; Emergency Provider Emergency Medicine Emergency Medical Services; PCP Family Medicine; Visit Provider Psychiatry & Neurology Psychiatry | DX: F33.1 Major depressive disorder, recurrent, moderate (principal); F14.10 Cocaine abuse, uncomplicated; F43.11 Post-traumatic stress disorder, acute | CPT/HCPCS: 90792; 99231; 99232; 99238 ==